=== PATIENT | female | born 1995 | race Caucasian/White ===

== ENCOUNTER → 2020-02-12 09:24 | Outpatient (BNVA) | payer OTHER, SELFPAY | PROVIDERS: Visit Provider Obstetrics & Gynecology | DX: Z32.01 Encounter for pregnancy test, result positive (principal) | CPT/HCPCS: 81025 ==

== ENCOUNTER → 2020-03-26 11:13 | Outpatient (BNVA) | payer OTHER, SELFPAY | PROVIDERS: Visit Provider Obstetrics & Gynecology | DX: O99.211 Obesity complicating pregnancy, first trimester (principal); E66.9 Obesity, unspecified; Z3A.00 Weeks of gestation of pregnancy not specified | CPT/HCPCS: 80307; 82950; 84315; 85027; 86592; 86762; 86803; 86850; 86900; 87086; 87340; 87806 ==

== ENCOUNTER → 2020-04-02 12:10 | Outpatient (BNVA) | payer OTHER, SELFPAY | PROVIDERS: Visit Provider Obstetrics & Gynecology | DX: Z34.01 Encounter for supervision of normal first pregnancy, first trimester (principal) | CPT/HCPCS: 84315; 87491; 87591 ==

== ENCOUNTER → 2020-07-29 15:46 | Outpatient (BNVA) | payer OTHER, SELFPAY | PROVIDERS: Visit Provider Obstetrics & Gynecology | DX: Z34.80 Encounter for supervision of other normal pregnancy, unspecified trimester (principal); Z34.01 Encounter for supervision of normal first pregnancy, first trimester | CPT/HCPCS: 82950; 84315; 85027 ==

== ENCOUNTER 2020-08-29 19:46 | Outpatient (CLI) | payer OTHER, SELFPAY ==
[2020-08-29 19:54] VITALS: BMI 43.9
[2020-08-29 20:09] VITALS: TEMP 36.7
[2020-08-29 20:10] VITALS: BP 121/70; PULSE 91; RESP 17
[2020-08-29 20:30] VITALS: BP 119/66; PULSE 90
[2020-08-29 20:45] VITALS: BP 119/66; PULSE 90; RESP 17; TEMP 36.7
== END 2020-08-29 20:45 | disposition home or self-care (01) ==
LOC: OPOB 19:46 → OBGYN 19:47
PROVIDERS: Visit Provider Obstetrics & Gynecology
DX: O36.8190 Decreased fetal movements, unspecified trimester, not applicable or unspecified (principal); Z3A.00 Weeks of gestation of pregnancy not specified
CPT/HCPCS: 59025; 99211

== ENCOUNTER 2020-08-30 15:30 | Outpatient (CLI) | payer OTHER, SELFPAY ==
--- NOTE | 2020-08-30 15:33 | USR_ITS ---
PROCEDURE INFORMATION: Exam: US Biophysical Profile Without Non-Stress Test Exam date and time: 08/30/2020 3:45 PM Age: 25 years old Clinical indication: Other: Decreased movement; TECHNIQUE: Imaging protocol: US biophysical profile without non-stress testing. COMPARISON: US OB >= 14 weeks fetus [facility] 05/29/2020 10:04 AM FINDINGS: Gestation: A single fetus is seen. heart rate is 136 BPM. The fetus is in vertex presentation. The placenta is anterior without previa. BIOPHYSICAL PROFILE: Breathin/2 Gross body movements: 2/2 tone: 2/2 Qualitative amniotic fluid: 2/2 single pocket of fluid 4.1 cm Biophysical Profile Score: 8/8 BIOMETRY: Gestational age (AUA): Gestational age 34 weeks STEPHANE 10/11/2020. MATERNAL ANATOMY: Cervix: The length of the cervix is 3.9 cm the cervical os is closed. US/US OB BPP wo NST 36849 IMPRESSION: 1. Biophysical profile score is 8 out of 8. 2. Single fetus in vertex presentation. 3. Normal cervix
[2020-08-30 15:35] VITALS: BMI 43.9
[2020-08-30 15:38] VITALS: BP 130/80; PULSE 118
[2020-08-30 15:53] VITALS: BP 153/97; PULSE 113
[2020-08-30 16:07] VITALS: BP 137/90; PULSE 107
== END 2020-08-30 16:10 | disposition home or self-care (01) ==
LOC: OPOB 15:32 → OBGYN 15:32
PROVIDERS: Visit Provider Obstetrics & Gynecology
DX: O36.8190 Decreased fetal movements, unspecified trimester, not applicable or unspecified (principal); Z3A.00 Weeks of gestation of pregnancy not specified
CPT/HCPCS: 76819; 84315; 99211

== ENCOUNTER 2020-09-16 08:21 | Outpatient (CLI) | payer OTHER, SELFPAY | END 2020-09-16 08:22 | disposition home or self-care (01) | LOC: OPOB 10-21 16:04 | PROVIDERS: Visit Provider Obstetrics & Gynecology | DX: Z34.01 Encounter for supervision of normal first pregnancy, first trimester (principal) | CPT/HCPCS: 84315; 87081 ==

== ENCOUNTER 2020-09-20 15:21 | Outpatient (CLI) | payer OTHER, SELFPAY ==
[2020-09-20 15:30] VITALS: BMI 43.0
[2020-09-20 15:44] VITALS: BP 137/72; PULSE 100
[2020-09-20 16:05] VITALS: RESP 18
[2020-09-20 16:16] LABS: Basophils % 0.2 %; Eosinophils # 0.1 10^3/uL (0.0-0.8); Eosinophils % 0.5 %; Hematocrit 34.8 % (37.0-47.0); Hemoglobin 11.7 g/dL (11.5-15.3); Lymphocytes # 1.4 10^3/uL (0.8-4.8); Lymphocytes % 14.4 %; Mean Corpuscular HGB Conc 33.6 g/dL (30.0-36.0); Mean Corpuscular Hemoglobin 29.1 pg (28.0-34.0); Mean Corpuscular Volume 86.6 fL (81-99); Mean Platelet Volume 10.3 fL (7.4-10.4); Monocytes # 0.6 10^3/uL (0.2-0.9); Monocytes % 6.4 %; Neutrophils # 7.55 10^3/uL (1.8-7.7); Neutrophils % 77.7 %; Nucleated Red Blood Cells % 0 %; Platelet Count 215 10^3/cmm (130-400); Red Blood Count 4.02 10^6/uL (4.1-5.3); Red Cell Distribution Width 13.4 % (12.1-15.1); White Blood Count 9.7 10^3/uL (4.0-10.0)
[2020-09-20 16:21] VITALS: BP 118/59; PULSE 97
[2020-09-20] MEDS: ondansetron 2 mg/ML SDV 2 mL 4 MG IVP (16:23)
--- NOTE | 2020-09-20 16:40 | PC.NURSE ---
Pt to L/D at 1521 with c/o having very dark urine, headache, nausea, and upper abdominal cramping this morning when she first woke up. Pt states she drank lots of water and all symptoms subsided. Then around lunch time she noticed excessive bleeding from a scratched scab on her neck. She stopped the bleeding with a band aid. She then called the office and they informed her to present to L/D for evaluation. Upon arrival, Dr Mcintyre on floor for another pt, she was notified to pt presentation and c/o. Orders for PreEclampsia labs, D5LR bolus, zofran, and serial blood pressures and update with results.
[2020-09-20 16:45] VITALS: BP 120/70; PULSE 86
[2020-09-20 16:45] LABS: Alanine Aminotransferase 12 U/L (0-33); Albumin Level 3.5 g/dL (3.5-5.2); Alkaline Phosphatase 189 IU/L (35-105); Aspartate Amino Transferase 14 U/L (0-32); Bilirubin Urine Neg (Negative); Blood Urea Nitrogen 10 mg/dL (6-20); Blood Urine Neg (Negative); Calcium 8.3 mg/dL (8.5-10.5); Carbon Dioxide 20 mmol/L (22-29); Chloride 105 mmol/L (98-107); Globulin 2.7 g/dL (1.3-4.6); Glomerular Filtration Rate 266.9 mL/min (90-130); Glucose 96 mg/dL (65-115); Glucose Urine UA 1+ (Normal); Ketones Urine Negative (Negative); Nitrate Urine Negative (Negative); Osmolality Calculated 283 mOsm/kg (285-295); Protein Urine Neg (Negative); Sodium 137 mmol/L (136-145); Specific Gravity, Urine 1.025 (1.005-1.030); Total Bilirubin 0.2 mg/dL (0.15-1.2); Total Protein 6.2 g/dL (6.6-8.7); Uric Acid 2.5 mg/dL (2.4-5.7); Urine Appearance SL Hazy (CLEAR); Urine Color Yellow (Yellow); Urobilinogen Urine Norm (Negative); pH Urine 5 (5-7)
[2020-09-20 16:46] LABS: Add Urine Microscopic? YES; Leukocyte Esterase Urine Trace (Negative)
[2020-09-20 16:47] LABS: Add Urine Culture? No; Bacteria Urine 1+ /hpf; Squamous Epithelial Cell Urine 40-55 /hpf (0-5); WBC Urine 15-25 /hpf (0-5)
[2020-09-20 16:48] LABS: Anion Gap 15.8 (5-19); Potassium 3.8 mmol/L (3.5-5.1)
[2020-09-20 16:54] LABS: Urine Creatinine 80 mg/dL (28-217); Urine Protein Random 9 mg/dL
[2020-09-20 16:56] LABS: UPRO/UCREAT Ratio 0.11 mg/mg CR
[2020-09-20 17:14] VITALS: BP 131/71; PULSE 86
== END 2020-09-20 17:35 | disposition home or self-care (01) ==
LOC: OPOB 15:26 → OBGYN 15:32
PROVIDERS: Visit Provider Obstetrics & Gynecology
DX: O26.899 Other specified pregnancy related conditions, unspecified trimester (principal); Z3A.00 Weeks of gestation of pregnancy not specified; R10.9 Unspecified abdominal pain
CPT/HCPCS: 36415; 59025; 80053; 81001; 82570; 84156; 84550; 85025; 96360; 96374; 99211; J2405

== ENCOUNTER 2020-09-24 13:20 | Outpatient (CLI) | payer OTHER, SELFPAY ==
[2020-09-24] VITALS (15 sets, daily range): BP systolic 120–178; BP diastolic 68–99; PULSE 88–118; RESP 18; BMI 43.4
[2020-09-24 14:29] LABS: Basophils % 0.3 %; Eosinophils % 0.3 %; Hematocrit 36.7 % (37.0-47.0); Hemoglobin 12.3 g/dL (11.5-15.3); Lymphocytes # 1.2 10^3/uL (0.8-4.8); Lymphocytes % 13.5 %; Mean Corpuscular HGB Conc 33.5 g/dL (30.0-36.0); Mean Corpuscular Hemoglobin 28.4 pg (28.0-34.0); Mean Corpuscular Volume 84.8 fL (81-99); Monocytes # 0.6 10^3/uL (0.2-0.9); Monocytes % 6.2 %; Neutrophils # 7.03 10^3/uL (1.8-7.7); Neutrophils % 78.9 %; Nucleated Red Blood Cells % 0 %; Platelet Count 216 10^3/cmm (130-400); Red Blood Count 4.33 10^6/uL (4.1-5.3); Red Cell Distribution Width 13.2 % (12.1-15.1); White Blood Count 8.9 10^3/uL (4.0-10.0)
[2020-09-24 14:53] LABS: Alanine Aminotransferase 12 U/L (0-33); Albumin Level 3.6 g/dL (3.5-5.2); Alkaline Phosphatase 207 IU/L (35-105); Anion Gap 16.6 (5-19); Aspartate Amino Transferase 13 U/L (0-32); Blood Urea Nitrogen 8 mg/dL (6-20); Calcium 8.6 mg/dL (8.5-10.5); Carbon Dioxide 21 mmol/L (22-29); Chloride 103 mmol/L (98-107); Globulin 2.7 g/dL (1.3-4.6); Glomerular Filtration Rate 266.9 mL/min (90-130); Glucose 108 mg/dL (65-115); Osmolality Calculated 283 mOsm/kg (285-295); Potassium 3.6 mmol/L (3.5-5.1); Sodium 137 mmol/L (136-145); Total Bilirubin 0.3 mg/dL (0.15-1.2); Total Protein 6.3 g/dL (6.6-8.7); Uric Acid 2.9 mg/dL (2.4-5.7)
[2020-09-24 14:54] LABS: Urine Creatinine 46 mg/dL (28-217); Urine Protein Random 6 mg/dL
[2020-09-24 14:56] LABS: UPRO/UCREAT Ratio 0.13 mg/mg CR
== END 2020-09-24 17:16 | disposition home or self-care (01) ==
LOC: OPOB 13:28 → OBGYN 13:29
PROVIDERS: Visit Provider Obstetrics & Gynecology
DX: O26.899 Other specified pregnancy related conditions, unspecified trimester (principal); Z3A.00 Weeks of gestation of pregnancy not specified; R10.9 Unspecified abdominal pain
CPT/HCPCS: 36415; 80053; 82570; 84156; 84550; 85025; 99211

== ENCOUNTER → 2020-10-02 07:55 | Outpatient (BNVA) | payer OTHER, SELFPAY | PROVIDERS: Visit Provider Obstetrics & Gynecology | DX: Z20.822 Contact with and (suspected) exposure to COVID-19 (principal); Z34.01 Encounter for supervision of normal first pregnancy, first trimester | CPT/HCPCS: 84315; 87635 ==

== ENCOUNTER 2020-10-07 19:13 | Observation (INO) | payer OTHER, SELFPAY ==
[2020-10-07] VITALS (11 sets, daily range): BP systolic 128–151; BP diastolic 72–84; PULSE 94–115; RESP 18; TEMP 36.4–36.7; O2SAT 97; BMI 45.9
[2020-10-07 20:12] LABS: Basophils % 0.3 %; Eosinophils % 0.3 %; Hematocrit 35.3 % (37.0-47.0); Hemoglobin 11.7 g/dL (11.5-15.3); Lymphocytes # 1.5 10^3/uL (0.8-4.8); Lymphocytes % 14.5 %; Mean Corpuscular HGB Conc 33.1 g/dL (30.0-36.0); Mean Corpuscular Hemoglobin 27.9 pg (28.0-34.0); Mean Corpuscular Volume 84.2 fL (81-99); Mean Platelet Volume 10.3 fL (7.4-10.4); Monocytes # 0.7 10^3/uL (0.2-0.9); Monocytes % 6.6 %; Neutrophils # 8.18 10^3/uL (1.8-7.7); Neutrophils % 77.7 %; Nucleated Red Blood Cells % 0 %; Platelet Count 246 10^3/cmm (130-400); Red Blood Count 4.19 10^6/uL (4.1-5.3); Red Cell Distribution Width 13.4 % (12.1-15.1); White Blood Count 10.5 10^3/uL (4.0-10.0)
[2020-10-07] MEDS: dextrose 5%-ns 0.9% 1,000 mL Bag 500 ML IV (20:29)
[2020-10-07] MEDS: miSOPROStol 100 mcg tablet 25 MCG VAGINAL (21:27)
[2020-10-07] MEDS: dextrose 5%-sod chloride 0.9% 1,000 ML 100 ML IV (21:28)
[2020-10-08] VITALS (37 sets, daily range): BP systolic 110–154; BP diastolic 58–102; PULSE 70–93; RESP 16; TEMP 36.4
[2020-10-08] MEDS: dextrose 5%-sod chloride 0.9% 1,000 ML 100 ML IV ×2 (08:39→17:55)
[2020-10-08] MEDS: oxytocin 30 UNIT/500 ML BAG IV (08:54)
--- NOTE | 2020-10-08 17:00 | P.DS_ITS ---
Discharge Providers [employer] Date of Admission: 10/07/20 19:13 Date of Discharge: 10/10/20 Attending Provider at Admission: Dewayne Oh MD Attending Provider at Discharge: Short stay summary: Ms. Nesbitt is a 25-year-old 1 para 0 at 39 weeks and 3 days who presented to labor and delivery on 10/08/2020 for scheduled cervical ripening given her unfavorable cervix. In the office her cervix was closed 40 to 50% externally and firm. When she presented for induction her cervix had not changed. A category 1 tracing and no contractions. Cervical ripening was started with Cytotec and 1 Cytotec was placed at about 9 PM. 4 hours later she was having irregular contractions every 2 to 5 minutes. She was given fluid hydration for a couple of hours and this did not space out the contractions and she was gumaro too frequently for another Cytotec even though they were mild to palpation. She was started on Pitocin for cervical ripening and continued on Pitocin to a maximum of 8 mIU for up to 10 hours and during this time she made very minimal cervical change however the cervix did become softer. At the end of this time she was sent home with the plan to bring her back at 39 weeks and 6 days for a longer induction and delivery. Just prior to discharge she had one elevated blood pressure and blood work done was negative for preeclampsia. Throughout her 24-hour stay the blood pressure was normotensive until just prior to discharge and it was thought to be because patient was upset that she was not in labor. Preeclampsia and labor precautions reviewed. kick counts discussed and patient scheduled to return at 7 PM on 10/10/2020 for induction of labor. -Continue vitamins Reason for Visit Reason for Visit: Labor Discharge Data Vitals: Last Vital Signs Temp 97.6 F 10/08/20 21:14 Pulse 86 10/08/20 21:14 Resp 16 10/08/20 21:14 BP 124/75 10/08/20 21:14 Pulse Ox 97 10/07/20 19:53 Discharge Plan Discharge Patient Disposition: Home Prescriptions: Continued prenat.vits,yemi,[id number] Tablet 1 tab PO DAILY RF: 0 Discharge Orders: Discharge Order (Routine); Ordered 10/08/20 Ordered By: Dewayne Oh Discharge Diet: Usual diet Discharge Activity: Resume usual activity Patient Instructions: Pre-eclampsia and Eclampsia (DC), Movement (DC), OB Undelivered Discharge Activity Restrictions/Additional Instructions: Return to OB department October at 0700pm for scheduled induction. Discharge Attestations [employer] Time Spent in Discharge Care*: greater than 30 min Coding Level of Care Code Acute Extractor Filler for Yeseniag Shania
[2020-10-08 20:20] LABS: Add Urine Microscopic? NO; Charge for UA Resulting for Rev
[2020-10-08 20:23] LABS: Bilirubin Urine Neg (Negative); Blood Urine Neg (Negative); Glucose Urine UA Norm (Normal); Ketones Urine Negative (Negative); Nitrate Urine Negative (Negative); Protein Urine Neg (Negative); Urine Appearance Clear (CLEAR); Urine Color Yellow (Yellow); Urobilinogen Urine Norm (Negative); pH Urine 5 (5-7)
[2020-10-08 20:24] LABS: Basophils % 0.3 %; Eosinophils % 0.4 %; Hematocrit 36.8 % (37.0-47.0); Leukocyte Esterase Urine Negative (Negative); Lymphocytes # 1.6 10^3/uL (0.8-4.8); Lymphocytes % 15.6 %; Mean Corpuscular HGB Conc 32.6 g/dL (30.0-36.0); Mean Corpuscular Hemoglobin 27.8 pg (28.0-34.0); Mean Corpuscular Volume 85.4 fL (81-99); Mean Platelet Volume 10.3 fL (7.4-10.4); Monocytes # 0.7 10^3/uL (0.2-0.9); Monocytes % 6.8 %; Neutrophils # 7.69 10^3/uL (1.8-7.7); Neutrophils % 76.5 %; Nucleated Red Blood Cells % 0 %; Platelet Count 220 10^3/cmm (130-400); Red Blood Count 4.31 10^6/uL (4.1-5.3); Red Cell Distribution Width 13.5 % (12.1-15.1); White Blood Count 10.1 10^3/uL (4.0-10.0)
[2020-10-08 20:39] LABS: UPRO/UCREAT Ratio 0.09 mg/mg CR; Urine Creatinine 115 mg/dL (28-217); Urine Protein Random 10 mg/dL
[2020-10-08 20:40] LABS: Alanine Aminotransferase < 5 U/L (0-33); Albumin Level 3.5 g/dL (3.5-5.2); Alkaline Phosphatase 225 IU/L (35-105); Anion Gap 15.6 (5-19); Aspartate Amino Transferase 13 U/L (0-32); Blood Urea Nitrogen 8 mg/dL (6-20); Calcium 8.1 mg/dL (8.5-10.5); Carbon Dioxide 20 mmol/L (22-29); Chloride 105 mmol/L (98-107); Globulin 2.6 g/dL (1.3-4.6); Glomerular Filtration Rate 191.5 mL/min (90-130); Glucose 72 mg/dL (65-115); Osmolality Calculated 281 mOsm/kg (285-295); Potassium 3.6 mmol/L (3.5-5.1); Sodium 137 mmol/L (136-145); Total Bilirubin 0.3 mg/dL (0.15-1.2); Total Protein 6.1 g/dL (6.6-8.7); Uric Acid 3.4 mg/dL (2.4-5.7)
== END 2020-10-08 21:30 | disposition home or self-care (01) ==
PROVIDERS: Obstetrics & Gynecology; Admitting Provider Obstetrics & Gynecology; Visit Provider Obstetrics & Gynecology
DX: O61.0 Failed medical induction of labor (principal); Z3A.39 39 weeks gestation of pregnancy
CPT/HCPCS: 36415; 59025; 80053; 81003; 82570; 84156; 84315; 84550; 85025; G0378; G0379

== ENCOUNTER 2020-10-11 08:23 | Inpatient (IN) | payer OTHER, SELFPAY ==
[2020-10-10 19:13] VITALS: BP 145/80; PULSE 110
[2020-10-10 19:14] VITALS: BMI 46.9
[2020-10-10 19:41] VITALS: RESP 16; TEMP 36.9
[2020-10-10 19:59] VITALS: BP 144/83; PULSE 98
[2020-10-10 20:06] LABS: Basophils % 0.4 %; Eosinophils % 0.3 %; Hemoglobin 11.6 g/dL (11.5-15.3); Lymphocytes # 1.6 10^3/uL (0.8-4.8); Lymphocytes % 14.6 %; Mean Corpuscular HGB Conc 33.1 g/dL (30.0-36.0); Mean Corpuscular Hemoglobin 28.2 pg (28.0-34.0); Mean Platelet Volume 10.4 fL (7.4-10.4); Monocytes # 0.7 10^3/uL (0.2-0.9); Monocytes % 6.2 %; Neutrophils # 8.24 10^3/uL (1.8-7.7); Neutrophils % 77.8 %; Nucleated Red Blood Cells % 0 %; Platelet Count 238 10^3/cmm (130-400); Red Blood Count 4.12 10^6/uL (4.1-5.3); Red Cell Distribution Width 13.5 % (12.1-15.1); White Blood Count 10.6 10^3/uL (4.0-10.0)
[2020-10-10] MEDS: miSOPROStol 100 mcg tablet 25 MCG VAGINAL (20:06)
[2020-10-10 21:36] VITALS: BP 141/80; PULSE 105
[2020-10-11] VITALS (29 sets, daily range): BP systolic 115–148; BP diastolic 70–98; PULSE 70–104; RESP 16–18; TEMP 36.7–36.8
[2020-10-11] MEDS: miSOPROStol 100 mcg tablet 25 MCG VAGINAL ×2 (01:32→20:55)
[2020-10-11] MEDS: oxytocin 30 UNIT/500 ML BAG IV (05:51)
[2020-10-11] MEDS: dextrose 5%-lactated ringers 1,000 ML 125 ML IV ×2 (07:52→15:54)
--- NOTE | 2020-10-11 16:19 | PM.OPHPUD ---
Labor & Delivery H&P Update Date of Procedure: October 11, 2020 Date H&P Performed: 10/07/20 H&P update information: I have reviewed H&P completed within last 30 days, I have examined patient prior to procedure and No changes to prior documentation Admission Diagnosis:
--- NOTE | 2020-10-11 16:29 | PM.PN ---
Subjective Subjective: Interval history: The patient received one dose of cytotec overnight. She had uterine hyperstimulation and no further cytotec was used. She had low dose pitocin started and then it had to be stopped due to hyperstimulation. The pitocin was restarted this morning. She has been receiving pitocin at the rate of 5 mU. Her cervix has not made any change. She is starting to feel some cramping, but that is all. status remains overall very reassuring with a category 1 tracing. Vitals/I&O/Wt Last Vital Signs Temp 98.1 F 10/11/20 07:19 Pulse 82 10/11/20 16:06 Resp 16 10/11/20 07:19 BP 140/98 10/11/20 16:06 10/11/20 10/11/20 10/11/20 06:59 14:59 22:59 Intake Total 4.15 / 4.15 1020.35 / 1024.50 Balance 4.15 / 4.15 1020.35 / 1024.50 Weight last 48 hrs Weight 318 lb Physical Exam Const: COMMON NORMALS: no acute distress, patient oriented x3, no limitations, healthy appearing and alert GENERAL APPEARANCE: cooperative, comfortable, well kempt and well developed ORIENTATION/CONSCIOUSNESS: Yes awake, Yes oriented to person, Yes oriented to place and Yes oriented to time Resp: COMMON NORMALS: normal respiratory effort EFFORT & INSPECTION: Yes able to speak in complete sentences : MANUAL OB EXAM: Not dilated nor effaced AMNIOTIC FLUID: no fluid Neuro: COMMON NORMALS: patient oriented x3 SENSORIUM/ORIENTATION: Yes alert, Yes oriented to person, Yes oriented to place and Yes oriented to time Psych: COMMON NORMALS: mental status grossly normal, Normal thought process present, cooperative, normal affect, speech normal and activity/motor behavior normal APPEARANCE: Yes grossly normal and Yes well kempt ATTITUDE: Yes calm and Yes engaged ACTIVITY/MOTOR BEHAVIOR: Yes appropriate eye contact SPEECH: Yes normal speech THOUGHT PROCESS: Normal thought process present Data : 10/10/20 19:45 A&P Assessment and plan (1) Macrosomia affecting management of mother: Status: Acute (2) Obesity affecting : Status: Acute Qualifiers: Trimester: first trimester Qualified Code(s): O99.211 - Obesity complicating , first trimester (3) Supervision of normal : Status: Acute Qualifiers: Normal : normal first Trimester: first trimester Qualified Code(s): Z34.01 - Encounter for supervision of normal first , first trimester (4) Encounter for induction of labor: The patient has received pitocin all day and not made any cervical change. She is starting to have more cramping, which is positive. plan to turn pitocin off and let patient have dinner. cytotec overnight baby remains overall very reassuring with category 1 tracing Status: Acute Attestations Medical Necessity Statement*: The patient is here for delivery. She will be staying at least two midnights. Coding Level of Care Code Acute Assemblies And Installations Inspector for Yeseniag Fwd Diagnoses Macrosomia affecting management of mother O36.60X0 Obesity affecting O99.211 Trimester: first trimester Supervision of normal Z34.01 Normal : normal first Trimester: first trimester Encounter for induction of labor Z34.90
[2020-10-11] MEDS: promethazine 25 mg/mL SDV 1 mL IM (20:59)
[2020-10-11] MEDS: morphine 4 mg/mL SDV 1 mL 8 MG IM (20:59)
[2020-10-12] VITALS (35 sets, daily range): BP systolic 113–148; BP diastolic 61–91; PULSE 71–99; RESP 15–20; TEMP 36.2–37.1; O2SAT 96–100
[2020-10-12] MEDS: miSOPROStol 100 mcg tablet 25 MCG VAGINAL (03:03)
[2020-10-12] MEDS: citric acid-sodium citrate 30 mL UDC PO (06:50)
[2020-10-12] MEDS: metoclopramide 5 mg/mL SDV 2 mL 10 MG IVP (06:50)
[2020-10-12] MEDS: famotidine 20 mg/2 mL INJ IVP (06:50)
--- NOTE | 2020-10-12 06:56 | PM.OPHPUD ---
Labor & Delivery H&P Update Date of Procedure: October 12, 2020 Date H&P Performed: 10/07/20 H&P update information: I have reviewed H&P completed within last 30 days, I have examined patient prior to procedure, No changes to prior documentation and Changes to prior documentation as noted here Changes to previous documentation: [facility] so recommend Admission Diagnosis:
--- NOTE | 2020-10-12 07:07 | PC.NURSE ---
Dr. Bianchi called and requested to come for delivery, OR 6. states that he is on his way.
--- NOTE | 2020-10-12 08:08 | SUR.OPER ---
surgicel lot # [id number] exp. 12/01/23 placed on uterus, 4x8 inch.
--- NOTE | 2020-10-12 08:13 | SUR.OPER ---
Heart tones 145bpm after spinal, prior to abdominal prep.
--- NOTE | 2020-10-12 08:22 | SUR.OPER ---
apgars 8 at 1 min., 9 at 5 min
--- NOTE | 2020-10-12 08:51 | P.OP_ITS ---
Operative Report Date of procedure: October 12, 2020 OPERATIVE REPORT Date of surgery: 10/12/2020 Date of dictation: 10/12/2020 Preoperative diagnosis: 25-year-old 1 para 0 at 40 weeks and 1 days, nonreassuring heart tracing, remote from delivery, morbid obesity with BMI of 47, suspected macrosomia, Postoperative diagnosis/findings: Same, baby girl, Nathaly weighing 9 pounds 7 ounces, 4218 g, length-22 inches Apgars 8/9, clear fluid, cephalic, normal tubes and ovaries bilaterally, Procedure done: Primary low transverse delivery via Pfannenstiel incision Specimens removed/disposition of specimens: Placenta and cord which were discarded Surgeon: Dr. Dewayne Gordon campus administrative assistant: Madison Silva Anesthesia: Spinal Estimated blood loss: 800 ml Intravenous fluids: 500 mL of LR Urine output: 300 mL of clear urine at the end of procedure Medications: As per anesthesia records Complications: None, both baby and mother were left to recover in a stable condition. INDICATION FOR SURGERY: Ms. Nesbitt is a 25-year-old 1 para 0 at 40 weeks and 1 day on 10/12/2020. She presented for scheduled induction of labor on 10/10/2020 at 7 PM at 39 weeks and 6 days. She had had 24 hours of cervical ripening done 3 days before with very minimal change in her cervix which was closed 50% firm and -4 station. course was complicated by macrosomia-suspected and obesity. GBS was negative. She presented on 10/10/2020 for scheduled induction and induction was started with Cytotec x2 the second which was placed at 1 AM. After this she made very minimal cervical change but was gumaro too frequently for another Cytotec. Pitocin was started at 6 AM on 10/11/2020 titrated to a maximum of 6 mIU and with this she started to contract every 2 minutes. tracing thus far was category 1. She received about 10 hours of Pitocin after which Pitocin was stopped patient was allowed a therapeutic break and allowed to eat. tracing was category 1. At 9 PM on 10/11/2020 induction was resumed with Cytotec placed vaginally and 4 hours later she had made some cervical change from closed thick and high to 1/60/-3. -At 6 AM when patient was put back on the monitor she had minimal variability and had a 3-minute deceleration and cervix was still 1 cm 60% and -3 station. Heart rate improved with position changes and return to category 1. Given the deceleration at the low induction and the fact that she was remote from delivery versus proceeding with versus continuing the induction she desired to proceed with delivery. Informed consents were signed PROCEDURE: After consent was obtained, patient was taken to the operating room where spinal anesthesia was placed without difficulty. She was placed supine on the table with a left lateral wedge. Fulton catheter and SCDs were placed. The abdomen was shaved and then prepped with duo prep. She was draped in a sterile fashion. After checking adequacy of anesthesia, a Pfannenstiel incision was made 2 cm above the pubic symphysis. The incision was carried down to the fascia using the Bovie. The fascia was nicked in the midline and the fascial incision was extended laterally using curved Mayos. The inferior aspect of the fascia was grasped with moo clamps and dissected off from the underlying rectus muscle. This was repeated again superiorly without any difficulty. The rectus muscle was . A natalie was made in the peritoneum and the peritoneal incision was carried inferiorly taking care to proceed in layers so as to avoid the bladder. The peritoneal incision was extended superiorly as well. No adhesions were noted from the uterus to the anterior abdominal wall. The uterus was noted to be rotated to the left. The bladder peritoneum was grasped with smooth forceps a bladder flap was created. the bladder blade was replaced thus protecting the bladder. A LOW TRANSVERSE UTERINE INCISION was made with a scalpel till the amniotic membrane was reached. The uterine incision was then extended laterally using bandage scissors. Amniotomy was done with Allis clamps and clear amniotic fluid was drained. The head of the baby was brought up to the level of the incision and delivered with fundal pressure. The remainder of body followed without any difficulty. The nose and mouth were suctioned, the umbilical cord was clamped and cut and the baby was handed off to the waiting, Dr. Bianchi. The placenta was delivered spontaneously with fundal massage. It was noted to be intact and was discarded. The interior of the uterus was cleaned of all clot and debris and was noted to be gumaro well. The uterus was exteriorized. A 1 to 2 cm lower uterine segment extension was noted and this was repaired with 0 Vicryl. Good hemostasis and reapproximation was obtained. And the uterine incision was closed with 0 Vicryl in a running interlocking manner. Good hemostasis and reapproximation was obtained. Interrupted sutures were placed to obtain hemostasis and reapproximation. The abdomen was irrigated and the gutters were cleaned of clot and debris. Normal tubes and ovaries were noted bilaterally. The uterus was placed back into the abdomen and uterine incision was noted to be hemostatic. Surgicel was placed over the incision. The peritoneum was closed with a 2-0 plain in a continuous stitch. The rectus muscle was reapproximated with 2-0 plain suture in a mattress stitch. Good hemostasis was noted in the rectus muscle layer. The fascia was inspected for any defects and none were found and the fascia was closed with 0 Vicryl in continuous stitch. The subcutaneous plane was then irrigated and hemostasis was obtained using the Bovie. The subcutaneous plane was then reapproximated using 2-0 plain suture in a continuous manner. The skin was then closed with 4-0 Monocryl in a subcuticular fashion. Good reapproximation and hemostasis was noted. Steri- Strips were applied. The incision was dressed with Telfa ,ABD and paper tape. The fundus was noted to be firm at the end of the procedure and excess blood was expressed from the vagina. The patient was left to recover in a stable condition. This documentation was created by [employer] supervisor covering and lining software (known for inherent supervisor covering and lining error). Every effort was made to assure accuracy of supervisor covering and lining. Any obvious errors or omissions should be clarified with the author of the document. History History History 1 Term 1 Miscarriages/Ectopic 0 0 Living Children 1 Other History: CDX 1 1----> primary low transverse delivery via Pfannenstiel incision for nonreassuring heart tracing remote from delivery. Performed by Dr. Gordon at [facility]. Baby girl Nathaly weighing 9 pounds 7 ounces. Low transverse delivery with 1 cm inferior extension
--- NOTE | 2020-10-12 08:55 | ANES.PREANE2 ---
Pre-Anesthetic Assessment Pre-Anesthetic Assessment: Height/Weight: Height 1.75 m Weight 144.242 kg Temp Pulse Resp BP Pulse Ox 97.2 F L 85 18 116/69 98 10/12/20 08:45 10/12/20 08:50 10/12/20 08:50 10/12/20 08:50 10/12/20 08:50 Proposed Procedure: Operation Date: 10/12/20 07:35 Proposed Procedures p Section(Not Applicable) - Dewayne Oh MD Was Beta Wesley taken within 24 hours: N/A Was Clonidine taken within 24 hours: N/A Last intake: Intake Last Liquid Date 10/11/20 Last Liquid Time 18:00 Last Solid Date 10/11/20 Last Solid Time 18:00 Social: Social History: No alcohol and No tobacco Exam: Pre-Anes Outpt Exam: alert, oriented x 3, clear to auscultation bilaterally and regular rate & rhythm Airway: Submandibular: WNL Cervical ROM: WNL MP: 2 Dentition: Full History/ROS: No significant history except as noted Metabolic: Metabolic: Morbid obesity Anesthetic Plan: ASA status: 2E Anesthesia: Regional (specify below) (SAB) Other: Gravid Risk of > 500 ml blood loss (7ml/kg in children): No Meds/Allergies Current Medications: Current Medications Generic Name Dose Route Start Last Admin Trade Name Freq PRN Reason Stop Dose Admin Dextrose/Lactated Ringer's 1,000 mls @ 125 m ls/hr 10/10/20 19:41 10/11/20 15:54 Dextrose 5%-Lact ated Ringers IV 125 mls/hr .Q8H PRN Administration per label comment s Oxytocin 30 unit in 500 ml s @ 1 mls/hr 10/11/20 01:00 10/11/20 16:17 Pitocin IV 0 milliunit/min .Q24H SHANTEL 0 mls/hr Titration Protocol 1 MILLIUNIT/MIN PFSH Anesthesia PFSH: Medical History No pertinent past medical history Denies diabetes, asthma, hypertension, seizures, DVT/PE. PMD: none Surgical History Hx of fracture of lower leg 2018-right leg-- required repair Family History Grandmother Breast cancer Paternal-- dx age 40's Hypertension Maternal Denies family history of Colon cancer Ovarian cancer Diabetes Heart disease Bleeding disorder Uterine cancer Thyroid disease Stroke Social History Additional social history: - Female Reproductive History: Date of last menstrual period: 10/08/20 : 1 Data Anesthesia CBC & Chem 7: 10/10/20 19:45 Other Labs: Laboratory Results - last 48 hr 10/10/20 19:45 WBC 10.6 H RBC 4.12 Hgb 11.6 Hct 35.0 L MCV 85.0 MCH 28.2 MCHC 33.1 RDW 13.5 Plt Count 238 MPV 10.4 Neut % (Auto) 77.8 Lymph % (Auto) 14.6 [place] % (Auto) 6.2 Eos % (Auto) 0.3 Baso % (Auto) 0.4 Neut # (Auto) 8.24 H Lymph # (Auto) 1.6 [place] # (Auto) 0.7 Eos # (Auto) 0.0 Baso # (Auto) 0.0 Nucleated RBC % (auto) 0 Nucleated RBCs # 0.0 Cardiac Studies: No Data to Display
--- NOTE | 2020-10-12 09:59 | ANE.PACU2 ---
Inpatient post-anesthesia follow up: Airway intact: Yes Vital signs: Temperature 98.7 F Pulse Rate 80 Respiratory Rate 19 Blood Pressure 124/67 Pulse Oximetry 98 Oxygen Delivery Me thod Room Air Oxygen Flow Rate Fraction of Inspir ed Oxygen Hydration adequate: Yes Nausea and vomiting: No Pain level: 2 Mental status: Baseline
[2020-10-12] MEDS: dextrose 5%-lactated ringers 1,000 ML 125 ML IV (16:43)
[2020-10-12] MEDS: docusate sodium 100 mg Capsule PO (18:38)
[2020-10-12] MEDS: ferrous sulfate EC 325 mg Tablet PO (18:38)
[2020-10-12 20:09] LABS: Hematocrit 30.2 % (37.0-47.0); Hemoglobin 10.1 g/dL (11.5-15.3); Mean Corpuscular HGB Conc 33.4 g/dL (30.0-36.0); Mean Corpuscular Hemoglobin 28.1 pg (28.0-34.0); Mean Corpuscular Volume 83.9 fL (81-99); Mean Platelet Volume 10.1 fL (7.4-10.4); Platelet Count 189 10^3/cmm (130-400); Red Cell Distribution Width 13.4 % (12.1-15.1); White Blood Count 11.6 10^3/uL (4.0-10.0)
[2020-10-12] MEDS: heparin 5,000 unit/mL INJ 1 mL 5000 UNIT SUBCUT (21:18)
[2020-10-12] MEDS: ibuprofen 800 mg tablet PO (21:18)
[2020-10-12] MEDS: HYDROcodone-acetaminophen 5-325 mg Tablet PO (23:10)
[2020-10-13 03:00] VITALS: BP 117/75; PULSE 86; RESP 16; TEMP 36.8; O2SAT 96
[2020-10-13] MEDS: heparin 5,000 unit/mL INJ 1 mL 5000 UNIT SUBCUT ×3 (05:31→21:10)
[2020-10-13] MEDS: HYDROcodone-acetaminophen 5-325 mg Tablet PO ×3 (09:28→18:06)
[2020-10-13] MEDS: ferrous sulfate EC 325 mg Tablet PO (09:28)
[2020-10-13] MEDS: prenatal vitamin Capsule 1 CAP PO (09:28)
[2020-10-13] MEDS: ibuprofen 800 mg tablet PO ×3 (09:28→21:10)
[2020-10-13] MEDS: docusate sodium 100 mg Capsule PO ×2 (09:28→18:06)
[2020-10-13 11:00] VITALS: BP 133/79; PULSE 98; RESP 16; TEMP 36.9; O2SAT 98
--- NOTE | 2020-10-13 11:01 | PC.NURSE ---
1050 Patient ambulated in hallway, 4-5 laps. Tolerated well
--- NOTE | 2020-10-13 13:15 | PM.PN ---
Subjective Subjective: Interval history: SUBJECTIVE: Ms Nesbitt is doing well today. She is voiding without any difficulty since removal of the catheter and reports moderate vaginal bleeding. Pain is controlled with p.o. pain medication. She denies fever, chills, shortness of breath and chest pain and reports being able to move well. She is ambulated well this morning passing flatus and tolerating regular diet. She denies nausea, vomiting, fever, chills, chest pain, shortness of breath. She is breast-feeding well with her daughter. OBJECTIVE/PHYSICAL EXAM: Gen.: No acute distress Heart: S1-S2 heard, regular rate and rhythm Lungs: Clear to auscultation bilaterally Abdomen: Soft, fundus firm below umbilicus, tenderness around incision. Incision: Clean dry and intact with Steri-Strips. Legs: No calf tenderness, 1+ pitting Pedal edema. ASSESSMENT AND PLAN: 25-year-old 1 para 1 status post primary low transverse delivery, postoperative day #1 -Continue routine postoperative care-continue regular diet and p.o. pain medication -Discontinue IV -Encourage ambulation and incentive spirometry use -Incision care reviewed with patient, breast-feeding support discussed-work and family life consultant ordered -Anticipate discharge home tomorrow as long as everything continues to do well -Continue SCDs while in bed and heparin for DVT prophylaxis Vitals/I&O/Wt Last Vital Signs Temp 98.4 F 10/13/20 11:00 Pulse 98 10/13/20 11:00 Resp 16 10/13/20 11:00 BP 133/79 10/13/20 11:00 Pulse Ox 98 10/13/20 11:00 10/12/20 10/13/20 10/13/20 22:59 06:59 14:59 Intake Total 850 / 1400 1999 / 1999 Output Total 1350 / 2950 1350 / 4300 1000 / 1000 Balance -500 / -1550 -1350 / -2900 1000 / 1000 Physical Exam Urinary Catheter Management^: [place]: Cath Placed During This Visit: yes, but has since been removed by the nurse Reason for Continuing Indwelling Catheter: Decision to DC Catheter Urinary Catheter Date of Insertion: 10/12/20 Urinary Catheter Time of Insertion: 07:18 Date Urinary Catheter Removed: 10/13/20 Time Urinary Catheter Discontinued: 03:20 Data : 10/12/20 19:55 Attestations Medical Necessity Statement*: Patient needs to stay 1-2 more midnights to recover from surgery Coding Level of Care Code Acute Content Manager for Minnie Jauregui
[2020-10-13 16:41] VITALS: BP 136/90; PULSE 99; RESP 17; TEMP 36.8; O2SAT 98
[2020-10-13] MEDS: simethicone 80 mg Chew PO (18:06)
[2020-10-13 21:21] VITALS: BP 134/82; PULSE 104; RESP 16; TEMP 36.8; O2SAT 97
[2020-10-14 04:00] VITALS: BP 135/83; PULSE 96; RESP 16; TEMP 36.6; O2SAT 98
[2020-10-14] MEDS: heparin 5,000 unit/mL INJ 1 mL 5000 UNIT SUBCUT (06:18)
--- NOTE | 2020-10-14 07:48 | PM.OBGYDC ---
Discharge Providers RESIDENTIAL APPRAISER Date of Admission: 10/12/20 09:01 Date of Discharge: 10/14/20 Attending Provider at Admission: Carri Mcintyre MD Attending Provider at Discharge: kvng Gordon Date of surgery: 10/12/2020 Preoperative diagnosis: 25-year-old 1 para 0 at 40 weeks and 1 days, nonreassuring heart tracing, remote from delivery, morbid obesity with BMI of 47, suspected macrosomia, Postoperative diagnosis/same, baby girl, Nathaly weighing 9 pounds 7 ounces, 4218 g, length-22 inches Apgars 8/9, clear fluid, cephalic, normal tubes and ovaries bilaterally, discharge diagnosis: 25-year-old 1 para 1 status post primary low transverse delivery for nonreassuring heart tracing remote from delivery Morbid obesity Macrosomia-large for gestational age Procedure done: Primary low transverse delivery via Pfannenstiel incision Surgeon: Dr. Kvng Gordon INDICATION FOR SURGERY: Ms. Nesbitt is a 25-year-old 1 para 0 at 40 weeks and 1 day on 10/12/2020. She presented for scheduled induction of labor on 10/10/2020 at 7 PM at 39 weeks and 6 days. She had had 24 hours of cervical ripening done 3 days before with very minimal change in her cervix which was closed 50% firm and -4 station. course was complicated by macrosomia-suspected and obesity. GBS was negative. She presented on 10/10/2020 for scheduled induction and induction was started with Cytotec x2 the second which was placed at 1 AM. After this she made very minimal cervical change but was gumaro too frequently for another Cytotec. Pitocin was started at 6 AM on 10/11/2020 titrated to a maximum of 6 mIU and with this she started to contract every 2 minutes. tracing thus far was category 1. She received about 10 hours of Pitocin after which Pitocin was stopped patient was allowed a therapeutic break and allowed to eat. tracing was category 1. At 9 PM on 10/11/2020 induction was resumed with Cytotec placed vaginally and 4 hours later she had made some cervical change from closed thick and high to 1/60/-3. -At 6 AM when patient was put back on the monitor she had minimal variability and had a 3-minute deceleration and cervix was still 1 cm 60% and -3 station. Heart rate improved with position changes and return to category 1. Given the deceleration at the low induction and the fact that she was remote from delivery versus proceeding with versus continuing the induction she desired to proceed with delivery. Informed consents were signed HOSPITAL COURSE: She underwent an uncomplicated primary low transverse delivery on 10/12/2020--please refer to operative report for details. She did well on day 0 and was ambulating well, tolerating regular diet, voiding freely, passing flatus. She was breast-feeding without difficulty and bonding well with her daughter. Pain was well-controlled with by mouth pain medication. She denied nausea, vomiting, fever, chills, shortness of breath, leg pain. She had moderate vaginal bleeding. On day # 1 she continued to do well with stable vital signs and stable hemoglobin at 10.1. She overall did well and was ambulating well. She was placed on SCDs and heparin throughout her course for DVT prophylaxis. She was discharged home on day 2 in a stable condition, as she desired early discharge. Warning signs for endometritis, wound infection, mastitis, DVT/PE were reviewed with her. Post delivery activity restrictions were also reviewed with her at all her questions were answered to her satisfaction. Contraception to be managed when she comes in for her visit. EXAM AT DISCHARGE: Gen.: No acute distress Heart: S1-S2 heard, regular rate and rhythm Lungs: Clear to auscultation bilaterally Abdomen: Soft, fundus firm below umbilicus, tenderness around incision. Incision: Clean dry and intact with Steri-Strips. Legs: No calf tenderness, 2+ pitting pedal edema. CONDITION AT DISCHARGE: Stable This documentation was created by [employer] brine plant operator software (known for inherent brine plant operator error). Every effort was made to assure accuracy of brine plant operator. Any obvious errors or omissions should be clarified with the author of the document. Diagnoses at Discharge Discharge Diagnosis (1) Macrosomia affecting management of mother: Status: Acute (2) Obesity affecting : Status: Acute Qualifiers: Trimester: first trimester Qualified Code(s): O99.211 - Obesity complicating , first trimester (3) Supervision of normal : Status: Acute Qualifiers: Normal : normal first Trimester: first trimester Qualified Code(s): Z34.01 - Encounter for supervision of normal first , first trimester (4) Encounter for induction of labor: Status: Acute Reason for Visit Reason for Visit: IOL Information Peripartum Data: Infant Delivery Method: Physical Exam Urinary Catheter Management^: [place]: Cath Placed During This Visit: yes, but has since been removed by the nurse Reason for Continuing Indwelling Catheter: Decision to DC Catheter Urinary Catheter Date of Insertion: 10/12/20 Urinary Catheter Time of Insertion: 07:18 Date Urinary Catheter Removed: 10/13/20 Time Urinary Catheter Discontinued: 03:20 Discharge Data Vitals: Last Vital Signs Temp 97.9 F 10/14/20 04:00 Pulse 96 10/14/20 04:00 Resp 16 10/14/20 04:00 BP 135/83 10/14/20 04:00 Pulse Ox 98 10/14/20 04:00 Discharge Plan Discharge Patient Disposition: Home Condition: Stable Prescriptions: New hydrocodone-acetaminophen 5-325 mg tablet 1 tab PO Q6H Qty: 25 RF: 0 docusate sodium 100 mg Capsule 100 mg PO BID PRN (Reason: constipation) Qty: 30 RF: 0 ibuprofen 800 mg tablet 800 mg PO Q8H Qty: 30 RF: 0 No Action prenat.vits,yemi,ynh-ryfe-snhpy Tablet 1 tab PO DAILY RF: 0 Discharge Orders: Discharge Order (Routine); Ordered 10/14/20 Ordered By: Kvng Oh Referrals: Kvng Oh MD [Physician] - (2-week incision and 6-week ) Discharge Diet: Usual diet Patient Instructions: Opioid Safety Activity Restrictions/Additional Instructions: No heavy lifting for 6 weeks, pelvic rest for 6 weeks 2-week incision check and 6-week visit both with Dr. Gordon. Discharge Attestations RESIDENTIAL APPRAISER Time Spent in Discharge Care*: greater than 30 min Coding Level of Care Code Acute Warp Doffer for Chg Fwd Diagnoses Macrosomia affecting management of mother O36.60X0 Obesity affecting O99.211 Trimester: first trimester Supervision of normal Z34.01 Normal : normal first Trimester: first trimester Encounter for induction of labor Z34.90
[2020-10-14] MEDS: prenatal vitamin Capsule 1 CAP PO (08:26)
[2020-10-14] MEDS: ibuprofen 800 mg tablet PO (08:26)
[2020-10-14] MEDS: docusate sodium 100 mg Capsule PO (08:26)
[2020-10-14 10:58] VITALS: BP 129/78; PULSE 101; RESP 16; TEMP 36.8; O2SAT 97
== END 2020-10-14 12:15 | disposition home or self-care (01) | DRG 788 ==
LOC: OPOB 08:24 → OBGYN 08:24
PROVIDERS: Obstetrics & Gynecology; Admitting Provider Obstetrics & Gynecology; Visit Provider Obstetrics & Gynecology
PROC: 10D00Z1 Extraction of Products of Conception, Low, Open Approach (ICD-10-PCS; CPT 59514; principal; 2020-10-12 07:15)
DX: O76 Abnormality in fetal heart rate and rhythm complicating labor and delivery (principal); O36.63X0 Maternal care for excessive fetal growth, third trimester, not applicable or unspecified; O99.214 Obesity complicating childbirth; E66.01 Morbid (severe) obesity due to excess calories; Z3A.39 39 weeks gestation of pregnancy; Z37.0 Single live birth
CPT/HCPCS: 36415; 59025; 59409; 85025; 85027; 96372; 96374; 96375; 98960; G0378; J0690; J1644; J2270; J2274; J2370; J2550; J2765; J3490

== ENCOUNTER → 2020-11-20 08:45 | Outpatient (BNVA) | payer OTHER, SELFPAY | PROVIDERS: Visit Provider Obstetrics & Gynecology | DX: Z12.4 Encounter for screening for malignant neoplasm of cervix (principal); L03.90 Cellulitis, unspecified | CPT/HCPCS: 88175 ==

== ENCOUNTER → 2020-11-26 14:54 | Outpatient (BNVA) | payer OTHER, SELFPAY | PROVIDERS: Visit Provider Obstetrics & Gynecology | DX: Z30.9 Encounter for contraceptive management, unspecified (principal) | CPT/HCPCS: 81025 ==

== ENCOUNTER → 2021-10-01 09:19 | Outpatient (BNVA) | payer OTHER, SELFPAY | PROVIDERS: Visit Provider Nurse Practitioner Family | DX: R59.0 Localized enlarged lymph nodes (principal) | CPT/HCPCS: 80053; 85025 ==

== ENCOUNTER 2021-12-07 09:04 | Emergency (ER) | payer OTHER, SELFPAY ==
[2021-12-07] VITALS (7 sets, daily range): BP systolic 131–145; BP diastolic 91–95; PULSE 86–95; RESP 14; TEMP 36.7; O2SAT 94–100; BMI 37.8
[2021-12-07 10:09] LABS: Basophils % 0.3 %; Eosinophils # 0.1 10^3/uL (0.0-0.8); Eosinophils % 1.1 %; Hemoglobin 12.4 g/dL (11.5-15.3); Lymphocytes # 1.4 10^3/uL (0.8-4.8); Lymphocytes % 22.3 %; Mean Corpuscular HGB Conc 32.6 g/dL (30.0-36.0); Mean Corpuscular Hemoglobin 28.4 pg (28.0-34.0); Mean Corpuscular Volume 87.2 fl (81-99); Mean Platelet Volume 9.7 fL (7.4-10.4); Monocytes # 0.4 10^3/uL (0.2-0.9); Monocytes % 6.9 %; Neutrophils # 4.29 10^3/uL (1.8-7.7); Neutrophils % 69.2 %; Nucleated Red Blood Cells % 0 %; Platelet Count 197 10^3/cmm (130-400); Red Blood Count 4.36 10^6/uL (4.1-5.3); Red Cell Distribution Width 13.1 % (12.1-15.1); White Blood Count 6.2 10^3/uL (4.0-10.0)
--- NOTE | 2021-12-07 10:28 | USR_ITS ---
PROCEDURE INFORMATION: Exam: US First Trimester, Transabdominal and US , Transvaginal Exam date and time: 12/07/2021 10:41 AM Age: 26 years old Clinical indication: Lmp or gestational age (in weeks): Unknown. Iud removed October 01; Other: Heavy bleeding; ; Prior surgery; Surgery date: 6+ months; Surgery type: C section 1 year ago; Patient HX: No menses since iud removal. Hcg is 1557. ; Additional info: Confirm intrauterine LABS AND CLINICAL REPORTS: Serum Choriogonadotropin (HCG): 1557 mIU/mL Last menstrual period start date: Unknown; 10/01/2021 Gestational age (Established): Unknown Estimated due date (Established): Unknown TECHNIQUE: Imaging protocol: Real-time transabdominal obstetrical ultrasound of the maternal pelvis and a first trimester , less than 14 weeks 0 days, with image documentation. Transvaginal imaging was used for better evaluation of the fetus, adnexa, and/or cervix. COMPARISON: US OB follow up [facility] 09/23/2020 2:44 PM FINDINGS: Gestation: A tiny intrauterine gestation sac is seen. A possible yolk sac is seen. Measurements of the sac are not provided. Embryonic/ heart rate: N/A Extra-embryonic membranes/Placenta: Unremarkable. No subchorionic bleed. Amniotic fluid: Amniotic fluid and extra-amniotic fluid is normal for gestational age. BIOMETRY: Gestational age (AUA): Exact gestational age is not known. MATERNAL: Uterus: Uterus measures 5.3 cm x 10.1 cm x 4.1 cm. Cervix: Cervical length measures 4.4 cm. Small amount of fluid in the cervix. Right ovary/adnexa: Right ovary measures 2 cm x 2.6 cm x 2.4 cm. Right ovarian volume is 7 mL. Arterial and venous flow are documented within the right ovary. Left ovary/adnexa: Left ovary measures 2.3 cm x 2.1 cm x 2.7 cm. Left ovarian volume is 7.3 mL. Arterial and venous flow are documented in the left ovary. Intraperitoneal space: No intraperitoneal free fluid. US/US OB <=14 wk fetus w transvag IMPRESSION: A tiny gestational sac is seen within the uterus containing a possible yolk sac. No measurements of the gestational sac are provided. Findings could reflect a very early of unknown viability. Advise repeat beta hCG in 48 hours and repeat pelvic ultrasound in 1 week.
--- NOTE | 2021-12-07 12:37 | ED_ITS ---
HPI - General: Chief complaint: Vaginal Bleeding Stated complaint: vaginal bleeding Time Seen by Provider: 12/07/21 09:09 Source: patient Mode of arrival: ambulatory History of Present Illness: 26-year-old female presents emergency room with complaints of vaginal bleeding. About 6 weeks ago she had an IUD removed she w as going to attempt to conceive. She had a preconception appointment reviewed from Dr. Quiñonez. She believes she is about 6 weeks at this point she began having cramping and bleeding is progressively worsening little bit but has not had a large amount of bleeding. She is making a gas at her gestational age at this point after she had the IUD she never had a normal period to gauge from. She is not having any significant pelvic pain. MD Complaint: vaginal bleeding Onset (ago): minute(s) Pain Consistency: constant Location: pelvis Severity: mild Quality: Cramping Radiation: pelvis Relieving factors: none Exacerbating factors: none Vaginal discharge: none Vaginal bleeding: other (Moderate) Date of Last Menstrual Period: 10/08/20 Associated symptoms: Deny abdominal pain, dysuria, malaise, nausea or vomiting Review of Systems Const: Denies: fever(s), chills, body aches, change in appetite, fatigue or malaise ENMT: Denies: throat pain, ear or mastoid pain, nasal discharge or nasal congestion Card: Denies: chest pain, edema, dyspnea on exertion or orthopnea Resp: Denies: dyspnea, productive cough or non-productive cough GI: Denies: abdominal pain, nausea, vomiting, hematemesis, coffee ground emesis, diarrhea, constipation, bloating, hematochezia or melena : Denies: flank pain, difficulty voiding, dysuria, urinary frequency or urinary urgency Skin/Breast: Denies: rash or pruritus PFSH ED PFSH: Medical History No pertinent past medical history Denies diabetes, asthma, hypertension, seizures, DVT/PE. PMD: Barbi Mandujano Surgical History Hx of fracture of lower leg 2018-right leg-- required repair Status post delivery 10/12/2020---primary low transverse delivery double layer closure with 1 cm inferior extension, performed by Dr. Gordon at [facility] [place]. Indication for surgery-nonreassuring heart tracing remote from delivery. Family History Grandmother Breast cancer Paternal-- dx age 40's Hypertension Maternal Denies family history of Colon cancer Ovarian cancer Diabetes Heart disease Bleeding disorder Uterine cancer Thyroid disease Stroke Social History Additional social history: - Female Reproductive History: Date of last menstrual period: 10/08/20 Physical Exam Const: COMMON NORMALS: no acute distress GENERAL APPEARANCE: cooperative and comfortable ORIENTATION/CONSCIOUSNESS: Yes awake, Yes oriented to person, Yes oriented to place and Yes oriented to time HENMT: COMMON NORMALS: normocephalic, atraumatic and hearing grossly normal bilaterally HEAD & SCALP: normocephalic and atraumatic Lymph: LYMPHATIC: no lymphadenopathy noted and no lymphedema noted Resp: COMMON NORMALS: normal respiratory effort, No retractions, No use of accessory muscles and clear to auscultation bilaterally AUSCULTATION: clear to auscultation bilaterally Cardio: COMMON NORMALS: regular rate, regular rhythm and No murmurs present (Cardio) RATE: regular rate RHYTHM: regular rhythm GI: COMMON NORMALS: Soft to palpation and No hepatosplenomegaly present AUSCULTATION: Yes normoactive bowel sounds PALPATION: Yes Soft to palpation, No Tenderness to palpation present (GI), No Guarding due to palpation present (GI) and Yes No hepatosplenomegaly present Extremity: COMMON NORMALS: normal to inspection, capillary refill normal, no clubbing, cyanosis or edema, no calf tenderness and no pedal edema Neuro: SENSORIUM/ORIENTATION: Yes oriented to person, Yes oriented to place and Yes oriented to time Skin: COMMON NORMALS: no rashes or lesions noted GENERAL SKIN EXAM: no rashes or lesions noted Course Vital Signs: Vital signs: Vital Signs Temperature 98.1 F 12/07/21 09:09 Pulse Rate 86 12/07/21 12:15 Respiratory Rate 14 12/07/21 09:09 Blood Pressure 131/95 12/07/21 12:15 Pulse Oximetry 96 12/07/21 12:15 Oxygen Delivery Me thod 12/07/21 12:00 MDM - OB/Uterine Contractions Medical Decision Making Patient is Rh+ based on previous records. Alternate does show gestational sac with small yolk sac some very difficult to identify. Recommend that the patient have a repeat beta-hCG in 3 to 4 days follow-up with her primary care doc she has any worsening or change symptoms should contact her material manager or return to the emergency room. Follow-up beta-hCG through her material manager office. Medical Records I reviewed the patient's medical records. Lab Data I reviewed the patient's lab results. : 12/07/21 10:03 Radiology Impressions Obstetrics Ultrasound 12/07/21 10:28 IMPRESSION: A tiny gestational sac is seen within the uterus containing a possible yolk sac. No measurements of the gestational sac are provided. Findings could reflect a very early of unknown viability. Advise repeat beta hCG in 48 hours and repeat pelvic ultrasound in 1 week. Laboratory Results WBC 6.2 10^3/uL (4.0-10.0) 12/07/21 10:03 Corrected WBC Cancelled 12/07/21 09:34 RBC 4.36 10^6/uL (4.1-5.3) 12/07/21 10:03 Hgb 12.4 g/dL (11.5-15.3) 12/07/21 10:03 Hct 38.0 % (37.0-47.0) 12/07/21 10:03 MCV 87.2 fl (81-99) 12/07/21 10:03 MCH 28.4 pg (28.0-34.0) 12/07/21 10:03 MCHC 32.6 g/dL (30.0-36.0) 12/07/21 10:03 RDW 13.1 % (12.1-15.1) 12/07/21 10:03 Plt Count 197 10^3/cmm (130-400) 12/07/21 10:03 MPV 9.7 fL (7.4-10.4) 12/07/21 10:03 Gran % Cancelled 12/07/21 09:34 Neut % (Auto) 69.2 % 12/07/21 10:03 Lymph % (Auto) 22.3 % 12/07/21 10:03 [place]cock % (Auto) 6.9 % 12/07/21 10:03 Eos % (Auto) 1.1 % 12/07/21 10:03 Baso % (Auto) 0.3 % 12/07/21 10:03 Neut # (Auto) 4.29 10^3/uL (1.8-7.7) 12/07/21 10:03 Lymph # (Auto) 1.4 10^3/uL (0.8-4.8) 12/07/21 10:03 [place]cock # (Auto) 0.4 10^3/uL (0.2-0.9) 12/07/21 10:03 Eos # (Auto) 0.1 10^3/uL (0.0-0.8) 12/07/21 10:03 Baso # (Auto) 0.0 10^3/uL (0.0-0.1) 12/07/21 10:03 Absolute Gran (auto) Cancelled 12/07/21 09:34 Nucleated RBC % (auto) 0 % 12/07/21 10:03 Nucleated RBCs # 0.0 /100WBC 12/07/21 10:03 Ser , Semi-Qnt 1557.00 mIU/mL 12/07/21 09:34 Discharge Plan Discharge Patient Disposition: Home Clinical Impression: Incomplete miscarriage Condition: Stable Prescriptions: No Action prenat.vits,yemi,dvp-vidn-lqvgt Tablet 1 tab PO DAILY Qty: 90 3RF amoxicillin-pot clavulanate 875-125 mg tablet 1 tab PO BID Qty: 20 0RF Discharge Orders: Discharge ED (Routine); Ordered 12/07/21 Ordered By: Reynaldo Van Patient Instructions: Opioid Safety Activity Restrictions/Additional Instructions: Follow-up with Dr. Gupta's office in the next 3 to 4 days for repeat beta-hCG Coding Level of Care Code ED Blueprint Trimmer for Chg Fwd Exam Comprehensive
== END 2021-12-07 12:05 | disposition home or self-care (01) ==
PROVIDERS: Emergency Provider Family Medicine
DX: O03.4 Incomplete spontaneous abortion without complication (principal)
CPT/HCPCS: 76801; 76817; 84702; 85025; 99284

== ENCOUNTER → 2021-12-09 09:25 | Outpatient (BNVA) | payer OTHER, SELFPAY | PROVIDERS: Visit Provider Obstetrics & Gynecology | DX: O20.9 Hemorrhage in early pregnancy, unspecified (principal); Z3A.00 Weeks of gestation of pregnancy not specified | CPT/HCPCS: 84702 ==

== ENCOUNTER 2021-12-10 14:46 | Outpatient (CLI) | payer OTHER, SELFPAY ==
--- NOTE | 2021-12-10 14:30 | US_ITS ---
WS: [id number] ULTRASOUND SOFT TISSUES posterior LEFT neck. HISTORY: R59.0 - Localized enlarged lymph nodes COMPARISON: None available. TECHNIQUE: 2-D and color Doppler imaging is submitted. Small benign-appearing lymph node along the posterior LEFT neck. This is just off midline. Lymph node measures 6 x 4 x 5 mm. No increased vascularity. No additional soft tissue mass. US/US soft tissue head neck [id number] IMPRESSION: Palpable area along the LEFT posterior neck corresponds to a normal lymph node.
== END 2021-12-10 14:47 | disposition home or self-care (01) ==
LOC: RAD 14:47
PROVIDERS: PCP Nurse Practitioner Family; Visit Provider Nurse Practitioner Family
DX: R59.0 Localized enlarged lymph nodes (principal)
CPT/HCPCS: 76536

== ENCOUNTER → 2021-12-15 13:54 | Outpatient (BNVA) | payer OTHER, SELFPAY | PROVIDERS: PCP Nurse Practitioner Family; Visit Provider Obstetrics & Gynecology | DX: O36.80X0 Pregnancy with inconclusive fetal viability, not applicable or unspecified (principal); Z3A.00 Weeks of gestation of pregnancy not specified | CPT/HCPCS: 76830 ==

== ENCOUNTER → 2021-12-31 15:36 | Outpatient (BNVA) | payer OTHER, SELFPAY | PROVIDERS: PCP Nurse Practitioner Family; Visit Provider Nurse Practitioner Family | DX: M54.9 Dorsalgia, unspecified (principal); M54.50 Low back pain, unspecified | CPT/HCPCS: 81000; 81025 ==

== ENCOUNTER 2022-01-01 09:58 | Outpatient (CLI) | payer SELFPAY ==
--- NOTE | 2022-01-01 10:53 | XR_ITS ---
WS: [id number] Exam: XR lumbar spine 2-3V* [id number] Date/Time of Exam: 01/01/2022 10:53 AM Reason For Exam: M54.50 - Low back pain, unspecified No fracture or dislocation. Early degenerative disc change at L4-5. There is straightening. Posterior elements are intact. No significant scoliosis. XR/XR lumbar spine 2-3V* [id number] IMPRESSION: 1. Straightening of the lumbar spine. No fracture or malalignment. 2. Early degenerative disc change at L5-S1.
== END 2022-01-01 09:59 | disposition home or self-care (01) ==
PROVIDERS: PCP Nurse Practitioner Family; Visit Provider Nurse Practitioner Family
DX: M54.50 Low back pain, unspecified (principal)
CPT/HCPCS: 72100

== ENCOUNTER 2022-02-25 10:50 | Outpatient (CLI) | payer OTHER, SELFPAY | END 2022-02-25 10:51 | disposition home or self-care (01) | PROVIDERS: PCP Nurse Practitioner Family; Visit Provider Nurse Practitioner Women's Health | DX: N92.6 Irregular menstruation, unspecified (principal); Z78.9 Other specified health status | CPT/HCPCS: 81025; 84702 ==

== ENCOUNTER → 2022-03-16 14:29 | Outpatient (BNVA) | payer OTHER, SELFPAY | PROVIDERS: PCP Nurse Practitioner Family; Visit Provider Obstetrics & Gynecology | DX: Z34.90 Encounter for supervision of normal pregnancy, unspecified, unspecified trimester (principal) | CPT/HCPCS: 80307; 84315; 87086 ==

== ENCOUNTER → 2022-03-18 16:10 | Outpatient (BNVA) | payer OTHER, SELFPAY | PROVIDERS: PCP Nurse Practitioner Family; Visit Provider Obstetrics & Gynecology | DX: Z34.90 Encounter for supervision of normal pregnancy, unspecified, unspecified trimester (principal) | CPT/HCPCS: 87077; 87086; 87184 ==

== ENCOUNTER 2022-04-01 15:45 | Outpatient (CLI) | payer OTHER, SELFPAY ==
[2022-04-01] MEDS: ondansetron 2 mg/ML SDV 2 mL 4 MG IVP (16:34)
[2022-04-01] MEDS: dextrose 5%-lactated ringers 1,000 ML 999 ML IV (16:34)
== END 2022-04-01 17:43 | disposition home or self-care (01) ==
LOC: OPOB 15:48 → OBGYN 15:48
PROVIDERS: PCP Nurse Practitioner Family; Visit Provider Obstetrics & Gynecology
DX: O26.899 Other specified pregnancy related conditions, unspecified trimester (principal); Z3A.00 Weeks of gestation of pregnancy not specified; R11.10 Vomiting, unspecified
CPT/HCPCS: 99211; J2405; J7121

== ENCOUNTER → 2022-04-02 09:17 | Outpatient (BNVA) | payer OTHER, SELFPAY | PROVIDERS: PCP Nurse Practitioner Family; Visit Provider Obstetrics & Gynecology | DX: O09.899 Supervision of other high risk pregnancies, unspecified trimester (principal); Z3A.00 Weeks of gestation of pregnancy not specified | CPT/HCPCS: 76801; 76802; 80307; 81000; 86803; 87086; 87340; 87491; 87591; 87661 ==

== ENCOUNTER 2022-04-13 13:15 | Outpatient (CLI) | payer OTHER, SELFPAY ==
[2022-04-13 14:00] VITALS: BP 155/77; PULSE 83
[2022-04-13] MEDS: ondansetron 2 mg/ML SDV 2 mL 4 MG IVP (14:07)
[2022-04-13] MEDS: dextrose 5%-lactated ringers 1,000 ML 999 ML IV ×2 (14:07)
[2022-04-13 14:12] VITALS: BMI 40.0
[2022-04-13 14:31] VITALS: BP 117/64; PULSE 86
[2022-04-13 15:01] VITALS: BP 130/66; PULSE 83
[2022-04-13 15:31] VITALS: BP 109/71; PULSE 86
[2022-04-13 16:01] VITALS: BP 107/68; PULSE 88
== END 2022-04-13 16:30 | disposition home or self-care (01) ==
LOC: OPOB 13:40 → OBGYN 13:42
PROVIDERS: PCP Nurse Practitioner Family; Visit Provider Obstetrics & Gynecology
DX: O26.899 Other specified pregnancy related conditions, unspecified trimester (principal); Z3A.00 Weeks of gestation of pregnancy not specified; R42 Dizziness and giddiness
CPT/HCPCS: 36415; 96374; 99211; J2405; J7121

== ENCOUNTER 2022-04-23 11:00 | Inpatient (IN) | payer OTHER, SELFPAY ==
[2022-04-23] VITALS (19 sets, daily range): BP systolic 119–156; BP diastolic 58–96; PULSE 83–106; RESP 17; TEMP 36.4–37.2; BMI 39.7
[2022-04-23] MEDS: miSOPROStol 200 mcg Tablet 600 MCG VAGINAL ×3 (10:44→20:39)
--- NOTE | 2022-04-23 11:34 | PM.OPHPUD ---
Labor & Delivery H&P Update Date of Procedure: April 24, 2022 Date H&P Performed: 04/23/22 H&P update information: I have reviewed H&P completed within last 30 days, I have examined patient prior to procedure and No changes to prior documentation Admission Diagnosis:
[2022-04-23 13:23] LABS: Basophils % 0.5 %; Eosinophils # 0.1 10^3/uL (0.0-0.8); Eosinophils % 1.5 %; Hematocrit 37.2 % (37.0-47.0); Hemoglobin 12.4 g/dL (11.5-15.3); Lymphocytes # 1.5 10^3/uL (0.8-4.8); Lymphocytes % 24.1 %; Mean Corpuscular HGB Conc 33.3 g/dL (30.0-36.0); Mean Corpuscular Hemoglobin 28.5 pg (28.0-34.0); Mean Corpuscular Volume 85.5 fl (81-99); Mean Platelet Volume 10.2 fL (7.4-10.4); Monocytes # 0.4 10^3/uL (0.2-0.9); Monocytes % 7.2 %; Neutrophils # 4.03 10^3/uL (1.8-7.7); Neutrophils % 66.4 %; Nucleated Red Blood Cells % 0 %; Platelet Count 238 10^3/cmm (130-400); Red Blood Count 4.35 10^6/uL (4.1-5.3); Red Cell Distribution Width 13.4 % (12.1-15.1); White Blood Count 6.1 10^3/uL (4.0-10.0)
[2022-04-24] VITALS (62 sets, daily range): BP systolic 102–130; BP diastolic 55–71; PULSE 73–111; RESP 14–18; TEMP 36; O2SAT 60–100
[2022-04-24] MEDS: fentaNYL 50 mcg/mL INJ 2mL IVP ×2 (02:42→04:07)
[2022-04-24] MEDS: dextrose 5%-lactated ringers 1,000 ML 125 ML IV (04:35)
[2022-04-24] MEDS: miSOPROStol 200 mcg Tablet 800 MCG PR (05:10)
--- NOTE | 2022-04-24 06:40 | PC.NURSE ---
0449 Patient turned call light on, this nurse went into room and patient stated that her water had broke and that everything had come out. This nurse put on sterile glove and pulled blankets back to look. One fetus was on the outside of the vagina. Glendy Shahid RN went to doctor's dictation room to bring Dr. Rich to the room. Dr. Rich came in room and delivered the second fetus. The placenta was still inside and Dr. Rich administered 800 mcg cytotec to help uterus continue to contract to try to deliver placenta.
--- NOTE | 2022-04-24 07:21 | P.PCNOB_ITS ---
Delivery Note: Date of delivery: April 24, 2022 Pre-delivery diagnoses: Twin demise 16 weeks Procedure: Induced vaginal delivery Delivering Physician: Guru Rich MD Estimated blood loss (mL): 300 Delivery: The patient was noted to be complete and pushing, so was placed in the dorsal lithotomy position, prepped and draped in the usual sterile fashion for a vaginal delivery. Pt. Noted to have epidural anesthesia. At [time] the patient delivered a nonviable 16 weeks male twins in breech presentation spontaneously over intact perineum. Both male fetuses were macerated. The placenta was not passed immediately, umbilical cord was grasped with ring forceps in a attempt to deliver the placenta but the umbilical cords detached. 800 mcg of misoprostol was inserted intravaginally. examination of the cervix and vaginal vault did not reveal any lacerations. Then when the patient was assisted to the bathroom it appeared that she had passed the placenta spontaneously but it was a blood clot. Her and her were counseled regarding evacuation via suction D&C was recommended to take out the remaining of the placenta. Examination of the perineum showed no laceration. The patient tolerated this procedure well, and recovered in L&D room. All sponge and needle counts were correct. History History History 3 Term 1 0 Miscarriages/Ectopic 2 Living Children 1 A&P Assessment and plan (1) demise before 20 weeks with retention of fetus: Coding Level of Care Code Acute Filter Press Tender for Chg Fwd Diagnoses demise before 20 weeks with retention of fetus O02.1
[2022-04-24] MEDS: ceFAZolin 2,000 MG in sodium chloride 0.9% (plus) 50 ML 100 MG IV (08:58)
[2022-04-24] MEDS: citric acid-sodium citrate 30 mL UDC PO (08:58)
[2022-04-24] MEDS: famotidine 20 mg/2 mL INJ IVP (08:58)
[2022-04-24] MEDS: metoclopramide 5 mg/mL SDV 2 mL 10 MG IVP (08:58)
--- NOTE | 2022-04-24 10:48 | P.ANESASSM_ITS ---
Pre-Anesthetic Assessment Height/Weight: Height 1.75 m Weight 122.016 kg Temp Pulse Resp BP Pulse Ox O2 Del Method 98.8 F 73 18 102/64 93 04/23/22 20:50 04/24/22 08:56 04/24/22 04:07 04/24/22 08:56 04/24/22 04:57 04/23/22 11:01 Suction D&C Familial anesthetic complications: none Was Beta Wesley taken within 24 hours: N/A Was Clonidine taken within 24 hours: N/A Social No alcohol and No tobacco Exam alert, oriented x 3, clear to auscultation bilaterally and regular rate & rhythm Airway Submandibular: within normal limits Cervical ROM: within normal limits Mallampati: Class II Dentition: full Metabolic Morbid Obesity Anesthetic Plan ASA status: 2E Anesthesia: General Medications/Allergies Home Medications Medication Instructions Recorded Confirmed Last Taken Type No Known Home Medications 04/23/22 04/23/22 Unknown History Allergies Allergy/AdvReac Type Severity Reaction Status Date / Time sulfamethoxazole Allergy ALGY-Hives Verified 04/23/22 08:15 [From Bactrim] trimethoprim [From Bactrim] Allergy ALGY-Hives Verified 04/23/22 08:15 Current Medications Generic Name Dose Route Start Last Admin Trade Name Freq PRN Reason Stop Dose Admin Fentanyl 25 - 100 mcg 04/23/22 09:39 04/24/22 04:07 Fentanyl 50 Mcg/Ml Inj 2ml IVP 50 mcg Q1H PRN Administration SEVERE PAIN Dextrose/Lactated Ringer's 1,000 mls @ 125 mls/hr 04/23/22 09:45 04/24/22 04:35 Dextrose 5%-Lactated Ringers IV 125 mls/hr .Q8H SHANTEL Administration PFSH Anesthesia Medical History No pertinent past medical history Denies diabetes, asthma, hypertension, seizures, DVT/PE. PMD: Barbi Mandujano Surgical History Hx of fracture of lower leg 2018-right leg-- required repair Status post delivery 10/12/2020---primary low transverse delivery double layer closure with 1 cm inferior extension, performed by Dr. Gordon at [facility] [place]. Indication for surgery-nonreassuring heart tracing remote from delivery. Family History Grandmother Breast cancer Paternal-- dx age 40's Hypertension Maternal Denies family history of Colon cancer Ovarian cancer Diabetes Heart disease Bleeding disorder Uterine cancer Thyroid disease Stroke Female Reproductive History Date of last menstrual period: 10/08/20 : 3 Data Anesthesia 04/23/22 10:24 Short CBC 04/23/22 Range/Units 10:24 WBC 6.1 (4.0-10.0) 10^3/uL Hgb 12.4 (11.5-15.3) g/dL Hct 37.2 (37.0-47.0) % MCV 85.5 (81-99) fl Plt Count 238 (130-400) 10^3/cmm Neut % (Auto) 66.4 % Neut # (Auto) 4.03 (1.8-7.7) 10^3/uL Cardiac Studies: No Data to Display
--- NOTE | 2022-04-24 10:48 | ANE.PACU2 ---
Inpatient post-anesthesia follow up: Airway intact: Yes Vital signs: Temperature 98.8 F Pulse Rate 73 Respiratory Rate 18 Blood Pressure 102/64 Pulse Oximetry 93 Oxygen Delivery Me thod Room Air Oxygen Flow Rate Fraction of Inspir ed Oxygen Hydration adequate: Yes Nausea and vomiting: No Pain level: 2 Mental status: Baseline
--- NOTE | 2022-04-24 11:05 | PM.OP ---
Operative Report Date of procedure: April 24, 2022 Pre-op diagnosis: Retained placenta/products of conception Procedure done: Suction dilation and curettage Specimens removed/disposition: Product of conception/placenta Surgeon: Guru Rich MD Estimated blood loss (mL): 100 Brief History: Mrs. Otto 26-year-old female is status post vaginal delivery of twin demise, with retained placenta Procedure: After informed consent, the patient was taken to the Operating Room where general anesthesia was administered. The patient was examined under anesthesia and found to have a normal uterus with normal adnexa. She was placed in the dorsal lithotomy position and prepped and draped in sterile fashion. A sterile weighted speculum was placed in the patient?s vagina. A single-tooth tenaculum was then applied to the cervix. The uterus was then gently sounded to 14 cm and a suction curette was advanced gently to the uterine fundus and product of conception emptied. A sharp curettage was then performed until a gritty texture was noted. There was minimal bleeding noted and the tenaculum was removed with good hemostasis noted. The patient tolerated the procedure well. The patient was taken to the recovery area in stable condition.
[2022-04-24 16:55] LABS: Hemoglobin 11.5 g/dL (11.5-15.3); Mean Corpuscular HGB Conc 33.8 g/dL (30.0-36.0); Mean Corpuscular Hemoglobin 28.5 pg (28.0-34.0); Mean Corpuscular Volume 84.2 fl (81-99); Mean Platelet Volume 9.8 fL (7.4-10.4); Platelet Count 229 10^3/cmm (130-400); Red Blood Count 4.04 10^6/uL (4.1-5.3); Red Cell Distribution Width 13.2 % (12.1-15.1); White Blood Count 9.4 10^3/uL (4.0-10.0)
--- NOTE | 2022-05-22 08:22 | P.DS_ITS ---
Discharge Providers CERTIFIED PHYSICAL THERAPIST ASSISTANT Date of Admission: 04/23/22 11:00 Date of Discharge: 05/22/22 Attending Provider at Admission: Guru Rich MD Attending Provider at Discharge: Guru Rich MD Primary CERTIFIED PHYSICAL THERAPIST ASSISTANT: Dr. Mcintyre Primary Care Provider: YOU Tate Diagnoses at Discharge Discharge Diagnosis (1) demise before 20 weeks with retention of fetus: Details from hospital stay: Twin demise 16 weeks Status: Acute Reason for Visit Reason for Visit: [facility] Hospital Course Hospital Course Mrs. Granda was admitted to the hospital with a demise at twins approximately 16 weeks for induction. Misoprostol was administered intravaginally until she had vaginal delivery of macerated male twin fetuses without complication. After recovery she requested to be discharged home. She was counseled regarding pelvic rest for 6 weeks (no sex, no tampons, no vaginal douches). Return to the emergency room if any fever, increased bleeding or pain. Physical Exam Narrative: GA; alert and oriented x 3 HEENT: normal Breasts: engorged Nipples - skin intact Lungs; clear to auscultation Heart: regular rhythm, no murmurs. Abd: Appropriately tender. BS+. Uterine fundus below umbilicus. No Fundal Tenderness. Perineum: normal lochia. Extremities: no edema, no cyanosis, no tenderness. History History History 3 Term 1 0 Miscarriages/Ectopic 3 Living Children 1 Discharge Data Studies Completed and Pending Completed Studies During Hospitalization Category Date Time Status Pathology: Surgical [PTH] Routine Pth 04/24/22 14:18 Completed Laboratory Results WBC 9.4 10^3/uL (4.0-10.0) 04/24/22 16:00 RBC 4.04 10^6/uL (4.1-5.3) L 04/24/22 16:00 Hgb 11.5 g/dL (11.5-15.3) 04/24/22 16:00 Hct 34.0 % (37.0-47.0) L 04/24/22 16:00 MCV 84.2 fl (81-99) 04/24/22 16:00 MCH 28.5 pg (28.0-34.0) 04/24/22 16:00 MCHC 33.8 g/dL (30.0-36.0) 04/24/22 16:00 RDW 13.2 % (12.1-15.1) 04/24/22 16:00 Plt Count 229 10^3/cmm (130-400) 04/24/22 16:00 MPV 9.8 fL (7.4-10.4) 04/24/22 16:00 Neut % (Auto) 66.4 % 04/23/22 10:24 Lymph % (Auto) 24.1 % 04/23/22 10:24 Cloud % (Auto) 7.2 % 04/23/22 10:24 Eos % (Auto) 1.5 % 04/23/22 10:24 Baso % (Auto) 0.5 % 04/23/22 10:24 Neut # (Auto) 4.03 10^3/uL (1.8-7.7) 04/23/22 10:24 Lymph # (Auto) 1.5 10^3/uL (0.8-4.8) 04/23/22 10:24 Cloud # (Auto) 0.4 10^3/uL (0.2-0.9) 04/23/22 10:24 Eos # (Auto) 0.1 10^3/uL (0.0-0.8) 04/23/22 10:24 Baso # (Auto) 0.0 10^3/uL (0.0-0.1) 04/23/22 10:24 Nucleated RBC % (auto) 0 % 04/23/22 10:24 Nucleated RBCs # 0.0 /100WBC 04/23/22 10:24 Vitals Last Vital Signs Temp 96.8 F L 04/24/22 14:55 Pulse 96 04/24/22 18:52 Resp 14 04/24/22 10:35 BP 122/67 04/24/22 18:52 Pulse Ox 97 04/24/22 11:23 O2 Del Method 04/24/22 10:35 Discharge Plan Discharge Patient Disposition: Home Prescriptions: No Action No Known Home Medications Discharge Orders: Discharge Order (Routine); Ordered 04/24/22 Ordered By: Guru Rich Referrals: Carri Mcintyre MD [Physician] - 2 weeks Discharge Diet: Usual diet Discharge Activity: Increase activity as tolerated Patient Instructions: General Anesthesia (By injection), Dilation and Curettage (DC), OB Discharge Report, Opioid Safety, Post Anesthesia Care, Abnormal Bleeding, Depression Activity Restrictions/Additional Instructions: Call Dr Mcintyre's office on Wednesday morning to schedule a follow up appointment in 2 weeks. You may take tylenol or ibuprofen for cramping as needed. You may take over the counter stool softener to avoid constipation. Drink plenty of fluids. Nothing per vagina for 6 weeks, or until cleared by your OB. Discharge Attestations CERTIFIED PHYSICAL THERAPIST ASSISTANT Time Spent in Discharge Care*: greater than 30 min Coding Level of Care Code Acute Code for Chg Fwd Diagnoses demise before 20 weeks with retention of fetus O02.1
== END 2022-04-24 18:20 | disposition home or self-care (01) | DRG 806 ==
LOC: OPOB 15:58 → OBGYN 16:16
PROVIDERS: Admitting Provider Obstetrics & Gynecology; PCP Nurse Practitioner Family; Visit Provider Obstetrics & Gynecology
PROC: 10E0XZZ Delivery of Products of Conception, External Approach (ICD-10-PCS; principal; 2022-04-24 09:30)
DX: O02.1 Missed abortion (principal); O72.2 Delayed and secondary postpartum hemorrhage; Z37.4 Twins, both stillborn; O32.1XX1 Maternal care for breech presentation, fetus 1; O32.1XX2 Maternal care for breech presentation, fetus 2; O30.002 Twin pregnancy, unspecified number of placenta and unspecified number of amniotic sacs, second trimester; Z3A.16 16 weeks gestation of pregnancy; Z88.2 Allergy status to sulfonamides; O34.211 Maternal care for low transverse scar from previous cesarean delivery
CPT/HCPCS: 36415; 59409; 85025; 85027; 88305; J0690; J2405; J2590; J2704; J2765; J3010; J3490; J7121

== ENCOUNTER 2022-06-04 22:37 | Emergency (ER) | payer BC, SELFPAY ==
[2022-06-04 22:44] VITALS: BP 156/82; PULSE 110; RESP 20; TEMP 36.3; O2SAT 98; BMI 39.9
--- NOTE | 2022-06-04 23:41 | CTR_ITS ---
PROCEDURE INFORMATION: Exam: CT Abdomen And Pelvis With Contrast Exam date and time: 06/04/2022 11:49 PM Age: 27 years old Clinical indication: Abdominal pain; Prior surgery; Surgery type: Csection; Patient HX: C/O pelvic pain with heavy menses. Miscarriage 2021. ; Additional info: Abd pain TECHNIQUE: Imaging protocol: Computed tomography of the abdomen and pelvis with contrast. Radiation optimization: All CT scans at this facility use at least one of these dose optimization techniques: automated exposure control; mA and/or kV adjustment per patient size (includes targeted exams where dose is matched to clinical indication); or iterative reconstruction. Contrast material: OMNI 350; Contrast volume: 100 ml; Contrast route: INTRAVENOUS (IV); Other protocol: This patient has received 0 known CTs and 0 known cardiac nuclear medicine studies in the 12 months prior to the current study. COMPARISON: US OB <= 14 wk fetus twins 04/02/2022 9:27 AM RADIATION DOSE METRICS: Total DLP (mGy-cm): 1133.23 FINDINGS: Liver: Normal. No mass. Gallbladder and bile ducts: Normal. No calcified stones. No ductal dilation. Pancreas: Normal. No ductal dilation. Spleen: Mild splenomegaly with 13.4 cm spleen. Adrenal glands: Normal. No mass. Kidneys and ureters: Normal. No hydronephrosis. Stomach and bowel: Unremarkable. No obstruction. No mucosal thickening. Appendix: No evidence of appendicitis. Intraperitoneal space: Unremarkable. No free air. No significant fluid collection. Vasculature: Unremarkable. No abdominal aortic aneurysm. Lymph nodes: Unremarkable. No enlarged lymph nodes. Urinary bladder: Unremarkable as visualized. Reproductive: There is a heterogeneous appearance of the uterus with endometrial stripe measuring 2 cm with enhancing material in the fundal endometrial cavity. Bones/joints: Unremarkable. No acute fracture. Soft tissues: Unremarkable. CT/CT abdomen pelvis w con* [id number] IMPRESSION: 1. Heterogeneous uterus with endometrial stripe measuring up to 2 cm containing regions of internal enhancement. This is suspicious for possible retained products of conception given history. Recommend pelvic ultrasound follow-up. 2. Mild splenomegaly.
--- NOTE | 2022-06-04 23:43 | W.ED.FEMALGU ---
HPI - Female Genitourinary General: Chief complaint: Urogenital-Female Stated complaint: ABD Pain Time Seen by Provider: 06/04/22 22:43 Source: patient Mode of arrival: ambulatory Limitations: no limitations History of Present Illness: 27-year-old female who had a miscarriage in April had a D&C in late April as well she states that she had had some discharge after that she had seen her OB in May but she states that today she started having her menstruation she states her bleeding not heavy but she is having severe cramps. She has been having some dysuria as well but she is having abdominal cramping she rates a 7 out of 10 denies any fever denies any vomiting. Associated symptoms: Reports abdominal pain; Deny headache(s) Date of Last Menstrual Period: 10/08/20 Review of Systems Const: Denies: fever(s), chills, body aches or change in appetite Eyes: Denies: blurry vision or eye discomfort ENMT: Denies: throat pain or dental pain Card: Denies: chest pain Resp: Denies: dyspnea GI: Reports: abdominal pain : Denies: dysuria Musc: Denies: neck pain or back pain Skin/Breast: Denies: rash Neuro: Denies: headache(s) Psych: Denies: depression Nikunj/Lymph: Denies: easy bruising All/Imm: Denies: urticaria PFSH ED PFSH: Medical History demise before 20 weeks with retention of fetus History of macrosomia in in prior , currently Monochorionic with multiple fetuses No pertinent past medical history Denies diabetes, asthma, hypertension, seizures, DVT/PE. PMD: Barbi Mandujano Surgical History Hx of fracture of lower leg 2018-right leg-- required repair Previous delivery affecting Status post delivery 10/12/2020---primary low transverse delivery double layer closure with 1 cm inferior extension[place] [facility] [place] Indication for surgery-nonreassuring heart tracing remote from delivery. Family History Grandmother Breast cancer Paternal-- dx age 40's Hypertension Maternal Denies family history of Colon cancer Ovarian cancer Diabetes Heart disease Bleeding disorder Uterine cancer Thyroid disease Stroke Female Reproductive History: Date of last menstrual period: 10/08/20 Physical Exam Const: COMMON NORMALS: no acute distress, patient oriented x3 and healthy appearing HENMT: COMMON NORMALS: normocephalic and atraumatic HEAD & SCALP: normocephalic and atraumatic Eye: COMMON NORMALS: Equal, round and reactive pupils present and EOMs intact bilaterally PUPIL: Yes Equal, round and reactive pupils present Neck/C-Spine: COMMON NORMALS: full ROM and supple Chest: COMMONS NORMALS: normal inspection of the chest and normal palpation of entire chest wall Resp: COMMON NORMALS: normal respiratory effort, No retractions, No use of accessory muscles and clear to auscultation bilaterally AUSCULTATION: clear to auscultation bilaterally Cardio: COMMON NORMALS: regular rate, regular rhythm and No murmurs present (Cardio) RATE: regular rate RHYTHM: regular rhythm GI: COMMON NORMALS: Normal to inspection, nondistended, normoactive bowel sounds present, Soft to palpation, non-tender and no masses PALPATION: Yes Soft to palpation Extremity: COMMON NORMALS: normal to inspection and full ROM Neuro: COMMON NORMALS: patient oriented x3, moves all extremities and no focal motor deficits Psych: COMMON NORMALS: mental status grossly normal, Normal thought process present and cooperative THOUGHT PROCESS: Normal thought process present Skin: COMMON NORMALS: no rashes or lesions noted and no wounds GENERAL SKIN EXAM: no rashes or lesions noted Course Vital Signs: Vital signs: Vital Signs Temperature 97.4 F L 06/04/22 22:44 Pulse Rate 102 H 06/05/22 00:00 Respiratory Rate 20 H 06/05/22 00:00 Blood Pressure 132/80 06/05/22 00:00 Pulse Oximetry 98 06/05/22 00:00 Oxygen Delivery Me thod 06/05/22 00:00 MDM - Female Medical Decision Making Patient presents here with vaginal bleeding she does have a UTI as well her pelvic exam here was normal just a minor amount of blood no discharge nothing foul-smelling no cervical tenderness no signs of endometritis. Ultrasound does show possible retained products still has a slightly positive quantitative I did spoke to Dr. Keyes and she is planning on doing another D&C on Wednesday and will call patient tomorrow informed patient of this and she is to worsen she is return we will place her on antibiotics and pain meds. Lab Data 06/04/22 23:44 06/04/22 23:44 Radiology Impressions Abdomen/Pelvis CT 06/04/22 23:41 IMPRESSION: 1. Heterogeneous uterus with endometrial stripe measuring up to 2 cm containing regions of internal enhancement. This is suspicious for possible retained products of conception given history. Recommend pelvic ultrasound follow-up. 2. Mild splenomegaly. Pelvic/Transvag US 06/05/22 00:19 IMPRESSION: Abnormally thickened heterogeneous endometrial complex, in particular the uterine fundus. Cannot exclude retained products of conception. Laboratory Results WBC 7.5 10^3/uL (4.0-10.0) 06/04/22 23:44 RBC 3.97 10^6/uL (4.1-5.3) L 06/04/22 23:44 Hgb 10.6 g/dL (11.5-15.3) L 06/04/22:44 Hct 33.6 % (37.0-47.0) L 06/04/22:44 MCV 84.6 fl (81-99) 06/04/22:44 MCH 26.7 pg (28.0-34.0) L 06/04/22:44 MCHC 31.5 g/dL (30.0-36.0) 06/04/22 23:44 RDW 12.8 % (12.1-15.1) 06/04/22 23:44 Plt Count 179 10^3/cmm (130-400) 06/04/22:44 MPV 9.4 fL (7.4-10.4) 06/04/22 23:44 Neut % (Auto) 73.3 % 06/04/22 23:44 Lymph % (Auto) 17.4 % 06/04/22 23:44 Jenkins % (Auto) 7.0 % 06/04/22 23:44 Eos % (Auto) 1.6 % 06/04/22 23:44 Baso % (Auto) 0.3 % 06/04/22:44 Neut # (Auto) 5.51 10^3/uL (1.8-7.7) 06/04/22 23:44 Lymph # (Auto) 1.3 10^3/uL (0.8-4.8) 06/04/22 23:44 Jenkins # (Auto) 0.5 10^3/uL (0.2-0.9) 06/04/22 23:44 Eos # (Auto) 0.1 10^3/uL (0.0-0.8) 06/04/22 23:44 Baso # (Auto) 0.0 10^3/uL (0.0-0.1) 06/04/22 23:44 Nucleated RBC % (auto) 0 % 06/04/22 23:44 Nucleated RBCs # 0.0 /100WBC 06/04/22 23:44 Sodium 140 mmol/L (136-145) 06/04/22 23:44 Potassium 3.8 mmol/L (3.5-5.1) 06/04/22 23:44 Chloride 105 mmol/L (98-107) 06/04/22 23:44 Carbon Dioxide 23 mmol/L (22-29) 06/04/22 23:44 Anion Gap 15.8 (5-19) 06/04/22 23:44 BUN 11 mg/dL (6-20) 06/04/22 23:44 Creatinine 0.6 mg/dL (0.5-0.9) 06/04/22 23:44 GFR Calculation 118.2 mL/min (90-130) 06/04/22 23:44 Glucose 111 mg/dL (65-115) 06/04/22 23:44 Calculated Osmolality 290 mOsm/kg (285-295) 06/04/22 23:44 Calcium 8.6 mg/dL (8.5-10.5) 06/04/22 23:44 Total Bilirubin 0.2 mg/dL (0.15-1.2) 06/04/22 23:44 AST 14 U/L (0-32) 06/04/22 23:44 ALT 14 U/L (0-33) 06/04/22 23:44 Alkaline Phosphatase 133 U/L (35-105) H 06/04/22 23:44 Total Protein 6.7 g/dL (6.6-8.7) 06/04/22 23:44 Albumin 3.8 g/dL (3.5-5.2) 02/02/23 23:44 Globulin 2.9 g/dL (1.3-4.6) 06/04/22 23:44 Lipase 22 U/L (13-60) 06/04/22 23:44 Ser , Semi-Qnt 21.28 mIU/mL 06/05/22 02:23 Urine Color Keisha (Yellow) 06/04/22 23:44 Urine Appearance Sl hazy (CLEAR) A 06/04/22 23:44 Urine pH 5 (5-7) 06/04/22 23:44 Ur Specific [place] 1.025 (1.005-1.030) 06/04/22 23:44 Urine Protein 1+ (Negative) H 06/04/22 23:44 Urine Glucose (UA) Norm (Normal) 06/04/22 23:44 Urine Ketones Negative (Negative) 06/04/22 23:44 Urine Blood 3+ (Negative) H 06/04/22 23:44 Urine Nitrate Positive (Negative) H 06/04/22 23:44 Urine Bilirubin 1+ (Negative) H 06/04/22 23:44 Urine Urobilinogen Norm mg/dL (Negative) 06/04/22 23:44 Ur Leukocyte Esterase 2+ (Negative) H 06/04/22 23:44 Urine RBC Too numerous to cnt /hpf (0-2) H 06/04/22 23:44 Urine WBC 80-100 /hpf (0-5) H 06/04/22 23:44 Ur Squamous Epith Cells 0-4 /hpf (0-5) H 06/04/22 23:44 Amorphous Sediment 1+ /hpf 06/04/22 23:44 Urine Bacteria 2+ /hpf (NONE) H 06/04/22 23:44 Discharge Plan Discharge Patient Disposition: Home Clinical Impression: Urinary tract infection, Retained products of conception Condition: Stable Prescriptions: New hydrocodone-acetaminophen 5-325 mg tablet 1 tab PO Q6H PRN (Reason: pain) Qty: 14 0RF cephalexin 500 mg capsule 500 mg PO QID 7 Days Qty: 28 0RF ondansetron 4 mg tablet,disintegrating 4 mg PO Q6H PRN (Reason: nausea and vomiting) Qty: 14 0RF Discharge Orders: Discharge ED (Routine); Ordered 06/05/22 Ordered By: Jay Lucero Referrals: Carri Mcintyre MD [Physician] - 1-3 days Discharge Diet: Advance as tolerated Discharge Activity: Resume usual activity Patient Instructions: Urinary Tract Infection in Women (ED), Opioid Safety Coding Level of Care Code ED Radiation Technician for Chg Fwd Exam Comprehensive
[2022-06-04 23:54] VITALS: RESP 16
[2022-06-04] MEDS: sodium chloride 0.9% 1,000 ML 999 ML IV (23:54)
[2022-06-04] MEDS: ondansetron 2 mg/ML SDV 2 mL 4 MG IVP (23:54)
[2022-06-04] MEDS: morphine 4 mg/mL SDV 1 mL IVP (23:54)
[2022-06-04 23:57] LABS: Basophils % 0.3 %; Eosinophils # 0.1 10^3/uL (0.0-0.8); Eosinophils % 1.6 %; Hematocrit 33.6 % (37.0-47.0); Hemoglobin 10.6 g/dL (11.5-15.3); Lymphocytes # 1.3 10^3/uL (0.8-4.8); Lymphocytes % 17.4 %; Mean Corpuscular HGB Conc 31.5 g/dL (30.0-36.0); Mean Corpuscular Hemoglobin 26.7 pg (28.0-34.0); Mean Corpuscular Volume 84.6 fl (81-99); Mean Platelet Volume 9.4 fL (7.4-10.4); Monocytes # 0.5 10^3/uL (0.2-0.9); Neutrophils # 5.51 10^3/uL (1.8-7.7); Neutrophils % 73.3 %; Nucleated Red Blood Cells % 0 %; Platelet Count 179 10^3/cmm (130-400); Red Blood Count 3.97 10^6/uL (4.1-5.3); Red Cell Distribution Width 12.8 % (12.1-15.1); White Blood Count 7.5 10^3/uL (4.0-10.0)
[2022-06-05] VITALS: BP 132/80; PULSE 102; RESP 20; O2SAT 98
[2022-06-05 00:15] LABS: Alanine Aminotransferase 14 U/L (0-33); Albumin Level 3.8 g/dL (3.5-5.2); Alkaline Phosphatase 133 U/L (35-105); Anion Gap 15.8 (5-19); Aspartate Amino Transferase 14 U/L (0-32); Blood Urea Nitrogen 11 mg/dL (6-20); Calcium 8.6 mg/dL (8.5-10.5); Carbon Dioxide 23 mmol/L (22-29); Chloride 105 mmol/L (98-107); Globulin 2.9 g/dL (1.3-4.6); Glomerular Filtration Rate 118.2 mL/min (90-130); Glucose 111 mg/dL (65-115); Lipase 22 U/L (13-60); Osmolality Calculated 290 mOsm/kg (285-295); Potassium 3.8 mmol/L (3.5-5.1); Sodium 140 mmol/L (136-145); Total Bilirubin 0.2 mg/dL (0.15-1.2); Total Protein 6.7 g/dL (6.6-8.7)
--- NOTE | 2022-06-05 00:19 | USR_ITS ---
PROCEDURE INFORMATION: Exam: US Pelvis Complete, Transabdominal and US Pelvis, Transvaginal and US Duplex Artery and Vein, Ovaries, Complete Exam date and time: 06/05/2022 12:56 AM Age: 27 years old Clinical indication: Pelvic pain; Prior surgery; Surgery date: 1-6 months; Surgery type: D&c April 2022; Patient HX: Patient had miscarriages December 2021, again April 2022, subsequent d&c apr 2022. Now 1st period since d&c is very painful 11/09, though not overly heavy. F/u CT = thickened endometrium; Additional info: Abd pain TECHNIQUE: Imaging protocol: Real-time complete transabdominal and transvaginal pelvic ultrasound with image documentation. Transvaginal imaging was used for better evaluation of the endometrium, adnexa, and/or cervix. Real-time duplex ultrasound scan of the arterial and venous flow of the ovaries with B-mode, color Doppler flow and spectral waveform analysis. Duplex exam was performed to evaluate for torsion and other vascular conditions. COMPARISON: CT abdomen pelvis w con* [id number] 06/04/2022 11:49 PM FINDINGS: Uterus: The endometrial complex is heterogeneous. The endometrium measures 15 mm thickness in the uterine body area, but expands up to the 28 mm in the fundus area. Uterus is anteflexed in position. Overall size of the uterus is grossly unremarkable. Morphology of the uterus is unremarkable. Size dimensions are 11.7 cm x 7.6 cm x 5.3 cm. Right ovary/adnexa: Ovary is normal. No mass. Normal ovarian blood flow. Several small follicles. Normal arterial and venous spectral Doppler waveform pattern. Left ovary/adnexa: Ovary is normal. No mass. Normal ovarian blood flow. Several small follicles. Normal arterial and venous spectral Doppler waveform pattern. Intraperitoneal space: No intraperitoneal fluid. Urinary bladder: Normal. US/US pelv w/transvag [id number] IMPRESSION: Abnormally thickened heterogeneous endometrial complex, in particular the uterine fundus. Cannot exclude retained products of conception.
[2022-06-05 00:20] LABS: Add Urine Microscopic? YES; Bacteria Urine 2+ /hpf; Bilirubin Urine 1+ (Negative); Blood Urine 3+ (Negative); Glucose Urine UA Norm (Normal); Ketones Urine Negative (Negative); Leukocyte Esterase Urine 2+ (Negative); Nitrate Urine Positive (Negative); Protein Urine 1+ (Negative); RBC Urine TOO NUMEROUS TO CNT /hpf (0-2); Specific Gravity, Urine 1.025 (1.005-1.030); Squamous Epithelial Cell Urine 0-4 /hpf (0-5); Urine Appearance SL Hazy (CLEAR); Urine Color Amber (Yellow); Urobilinogen Urine Norm (Negative); WBC Urine 80-100 /hpf (0-5); pH Urine 5 (5-7)
[2022-06-05 00:21] LABS: Add Urine Culture? Yes; Amorphous Sediment Urine 1+ /hpf
[2022-06-05] MEDS: cefTRIAXone 1,000 MG in sodium chloride 0.9% (plus) 50 ML 100 MG IV (00:52)
[2022-06-05 02:39] LABS: HCG Quantitative 21.28 mIU/mL
== END 2022-06-05 02:57 | disposition home or self-care (01) ==
PROVIDERS: Emergency Provider Emergency Medicine
DX: N39.0 Urinary tract infection, site not specified (principal); O03.4 Incomplete spontaneous abortion without complication
CPT/HCPCS: 74177; 76830; 76856; 80053; 81001; 81003; 83690; 84702; 85025; 87086; 87210; 87491; 87591; 96365; 96375; 99285; J0696; J2270; J2405; J7030; Q9967

== ENCOUNTER → 2022-06-09 10:57 | Day surgery (SDC) | payer BC, SELFPAY ==
[2022-06-09] VITALS (9 sets, daily range): BP systolic 68–125; BP diastolic 54–77; PULSE 84–104; RESP 16–18; TEMP 36.2–36.8; O2SAT 96–100; BMI 39.9
[2022-06-09] MEDS: sodium chloride 0.9% 1,000 ML 30 ML IV (11:45)
--- NOTE | 2022-06-09 12:04 | W.PM.OPSUD ---
Surgery/Procedure H&P Update DATE OF PROCEDURE: June 09, 2022 DATE H&P PERFORMED: 06/01/22 CHANGES TO PREVIOUS DOCUMENTATION: The patient continues to have cramping and bloody discharge. She had an ultrasound which showed retained products of conception PREOP DIAGNOSIS: retained products of conception PLANNED PROCEDURE: Operation Date: 06/09/22 13:10 Proposed Procedures p Hysteroscopy, dilation and curettage [id number], O73.0(Not Applicable) - Carri Mcintyre MD s Dilation And Curettage (D&C)(Not Applicable) - Carri Mcintyre MD
--- NOTE | 2022-06-09 13:19 | P.ANESASSM_ITS ---
Pre-Anesthetic Assessment Height/Weight: Height 1.75 m Weight 122.47 kg Temp Pulse Resp BP Pulse Ox O2 Del Method 97.2 F L 104 H 17 125/72 100 06/09/22 11:12 06/09/22 11:12 06/09/22 11:12 06/09/22 11:12 06/09/22 11:12 06/09/22 11:18 Preop Diagnosis: retained products of conception Operation Date: 06/09/22 13:10 Proposed Procedures p Hysteroscopy, dilation and curettage [id number], O73.0(Not Applicable) - Carri Mcintyre MD s Dilation And Curettage (D&C)(Not Applicable) - Carri Mcintyre MD Familial anesthetic complications: None Was Beta Wesley taken within 24 hours: N/A Was Clonidine taken within 24 hours: N/A Last intake: Intake Last Liquid Date 06/09/22 Last Liquid Time 01:30 Last Solid Date 06/08/22 Last Solid Time 19:30 Social Alcohol (Social) and No tobacco Exam alert, oriented x 3, clear to auscultation bilaterally and regular rate & rhythm Airway Submandibular: within normal limits Cervical ROM: within normal limits Mallampati: Class III Dentition: full History/ROS No significant history except as noted and No significant complaints Pulmonary None reported CV/HEM None reported Urinary Tract Infection Hepatic None reported GI None reported Metabolic Morbid Obesity Musc/skel Osteoarthritis/DJD Neuropsych None reported Anesthetic Plan ASA status: 2 Anesthesia: Anesthesia Evaluation and General Risk of > 500 ml blood loss (7ml/kg in children): Yes, adequate IV access and fluids planned Medications/Allergies Home Medications Medication Instructions Recorded Confirmed Last Taken Type cephalexin 500 mg capsule 500 mg PO QID 7 days #28 caps 06/05/22 06/09/22 06/08/22 22:00 Rx hydrocodone 5 mg-acetaminophen 325 1 tab PO Q6H PRN pain #14 tabs 06/05/22 06/09/22 06/09/22 01:30 Rx mg tablet ondansetron 4 mg disintegrating 4 mg PO Q6H PRN nausea and 06/05/22 06/09/22 06/09/22 01:30 Rx tablet vomiting #14 tabs Allergies Allergy/AdvReac Type Severity Reaction Status Date / Time sulfamethoxazole Allergy ALGY-Hives Verified 06/09/22 11:11 [From Bactrim] trimethoprim [From Bactrim] Allergy ALGY-Hives Verified 06/09/22 11:11 Current Medications Generic Name Dose Route Start Last Admin Trade Name Iamq PRN Reason Stop Dose Admin Sodium Chloride 1,000 mls @ 30 mls/hr 06/09/22 11:15 06/09/22 11:45 Sodium Chloride 0.9% IV 06/10/22 11:14 30 mls/hr .Q24H SHANTEL Administration PFSH Anesthesia Medical History demise before 20 weeks with retention of fetus History of macrosomia in infant in prior , currently Monochorionic with multiple fetuses No pertinent past medical history Denies diabetes, asthma, hypertension, seizures, DVT/PE. PMD: Barbi Mandujano Surgical History Hx of fracture of lower leg 2018-right leg-- required repair Previous delivery affecting Status post delivery 10/12/2020---primary low transverse delivery double layer closure with 1 cm inferior extension, performed by Dr. Gordon at [facility] [place]. Indication for surgery-nonreassuring heart tracing remote from delivery. Family History Grandmother Breast cancer Paternal-- dx age 40's Hypertension Maternal Denies family history of Colon cancer Ovarian cancer Diabetes Heart disease Bleeding disorder Uterine cancer Thyroid disease Stroke Female Reproductive History Date of last menstrual period: 01/07/22 Data Anesthesia Cardiac Studies: No Data to Display
[2022-06-09] MEDS: ceFAZolin 2,000 MG in sodium chloride 0.9% (plus) 50 ML 100 MG IV (13:29)
[2022-06-09] MEDS: ceFAZolin 1,000 MG in sodium chloride 0.9% (plus) 50 ML 100 MG IV (13:58)
--- NOTE | 2022-06-09 14:29 | PM.OP ---
Operative Report Date of procedure: June 09, 2022 Pre-op diagnosis: Preop Diagnosis retained products of conception Post-op diagnosis: same Post-op findings: 9 week sized uterus with excessive tissue. An area on the right side of uterus with products of conception looking tissue. Procedure done: Hysteroscopy, dilation and curettage with myosure Specimens removed/disposition: endometrial curettings to pathology Surgeon: Carri Mcintyre Anesthesia: General Estimated blood loss (mL): 30 IV fluids (mL): 1,100 Urine output (mL): 75 Complications: none Findings: hysteroscoy deficit: 1740, with a lot of fluid lost onto floor Condition: stable Disposition: PACU Procedure: The patient was taken to the operating room where monitored anesthesia was administered and to be adequate. She was prepped and draped in the normal sterile fashion in the dorsal lithotomy position in [facility]. A weighted speculum was placed into the vagina and the anterior lip of the cervix grasped with a single-tooth tenaculum. The uterus was sounded to 9 cm. The cervix was dilated to 16 [place]. The hysteroscope was advanced into the endometrial cavity. There was excessive tissue visualized. The MyoSure device was activated and the tissue was removed. Pictures were taken pre and post procedure. All instruments were removed. The patient tolerated the procedure well. Sponge lap and needle counts were correct x3. She was taken to the recovery room in stable condition.
--- NOTE | 2022-06-09 14:41 | PM.DCS ---
Discharge Providers Date of Admission: 06/09/22 Date of Discharge: June 09, 2022 Attending Provider at Discharge: Carri Mcintyre MD Primary Care Provider: YOU Tate Hospital Course Hospital Course The patient was admitted for surgery. She did well postoperatively and was ready for discharge. Discharge Data Studies Completed and Pending Pending at discharge Category Date Time Status Pathology: Surgical [PTH] Routine Pth 06/09/22 14:16 Ordered Vitals Last Vital Signs Temp 97.2 F L 06/09/22 11:12 Pulse 104 H 06/09/22 11:12 Resp 17 06/09/22 11:12 BP 125/72 06/09/22 11:12 Pulse Ox 100 06/09/22 11:12 O2 Del Method 06/09/22 11:18 O2 Flow Rate 6 06/09/22 14:28 Discharge Plan Discharge Patient Disposition: Home Condition: Stable Prescriptions: Continued hydrocodone-acetaminophen 5-325 mg tablet 1 tab PO Q6H PRN (Reason: pain) Qty: 14 0RF cephalexin 500 mg capsule 500 mg PO QID 7 Days Qty: 28 0RF ondansetron 4 mg tablet,disintegrating 4 mg PO Q6H PRN (Reason: nausea and vomiting) Qty: 14 0RF Discharge Orders: Discharge Order (Routine); Ordered 06/09/22 Ordered By: Carri Mcintyre Discharge Attestations Time Spent in Discharge Care*: less than 30 min Quality Metrics Clinical Quality Measures [ No reported AMI, CVA or VTE this stay] Coding Level of Care Code Acute Code for Chg Fwd
--- NOTE | 2022-06-09 16:07 | ANE.PACU2 ---
Inpatient post-anesthesia follow up: Airway intact: Yes Vital signs: Temperature 97.6 F Pulse Rate 89 Respiratory Rate 17 Blood Pressure 106/74 Pulse Oximetry 100 Oxygen Delivery Me thod Room Air Oxygen Flow Rate 6 Fraction of Inspir ed Oxygen Hydration adequate: Yes Nausea and vomiting: No Pain level: 1 Mental status: Baseline
== END | disposition home or self-care (01) ==
PROVIDERS: PCP Nurse Practitioner Family; Visit Provider Obstetrics & Gynecology
PROC: 0UJD8ZZ Inspection of Uterus and Cervix, Via Natural or Artificial Opening Endoscopic (ICD-10-PCS; CPT 58555; principal; 2022-06-09 13:00)
PROC: (CPT 58120; 2022-06-09 13:00)
PROC: 0UDB8ZZ Extraction of Endometrium, Via Natural or Artificial Opening Endoscopic (ICD-10-PCS; CPT 58558; 2022-06-09 13:00)
DX: O02.1 Missed abortion (principal); Z3A.09 9 weeks gestation of pregnancy; E66.01 Morbid (severe) obesity due to excess calories
CPT/HCPCS: 59812; 88305; J0131; J0690; J1100; J1885; J2250; J2405; J2704; J3010; J7030

== ENCOUNTER → 2022-06-18 15:55 | Outpatient (BNVA) | payer BC, SELFPAY | PROVIDERS: PCP Nurse Practitioner Family; Visit Provider Obstetrics & Gynecology | DX: N92.6 Irregular menstruation, unspecified (principal); R39.9 Unspecified symptoms and signs involving the genitourinary system | CPT/HCPCS: 81000; 84702 ==